=== PATIENT | male | born 1940 | race Caucasian/White ===

== ENCOUNTER 2018-10-04 05:40 | Day surgery (SDC) | payer MEDICARE, BC ==
[2018-10-04] MEDS ORDERED: Ketamine HCl 50 MG/ML IV ONE (05:41)
[2018-10-04] MEDS ORDERED: DIPRIVAN 200 MG/20 ML IV ONE (05:41)
[2018-10-04] MEDS ORDERED: Lactated Ringers 1,000 ML IV SCH (06:00)
[2018-10-04 09:31] VITALS: O2SAT 97
[2018-10-04 09:32] VITALS: BP 135/67; PULSE 59
--- NOTE | 2018-10-04 10:23 | OP ---
SURGERY DATE/TIME: 10/04/2018 08 PREOPERATIVE DIAGNOSIS: Change in bowel habits. POSTOPERATIVE DIAGNOSIS: Normal colon. PROCEDURE: Colonoscopy. SURGEON: David Man M.D. ANESTHESIA: MAC by Jose Daniel Thomson CRNA. ESTIMATED BLOOD LOSS: None. SPECIMENS: None. DESCRIPTION OF PROCEDURE: After informed written consent was obtained, the patient was taken to the endoscopy suite. He underwent monitored anesthesia and had digital rectal exam showed normal sphincter tone and no internal lesions. The scope was inserted into the rectum and sequentially the entire colonic mucosa was traversed. The level of cecum was reached and verified with direct visualization of ileocecal valve. Upon withdrawal no gross mucosal abnormalities were detected. Prior to withdrawal retroflexion showed no internal lesions. The scope was removed and the patient was transferred to the recovery room in good condition.
== END 2018-10-04 09:15 | disposition home or self-care (01) ==
LOC: SDC 05:40
PROVIDERS: ATTEND Family Medicine
DX: R19.4 Change in bowel habit (principal)
CPT/HCPCS: 99100; J2704

== ENCOUNTER 2019-10-24 11:35 | Inpatient (IN) | payer MEDICARE, BC ==
--- NOTE | 2019-10-24 12:12 | ERPHSYRPT ---
- History of Present Illness Time Seen by Provider: 10/24/19 11:55 Source: patient Exam Limitations: no limitations Patient Subjective Stated Complaint: Pt states "Yesterday I went [place] and [place] out a fence row that had poisen gaye, sumac, oak and then went home and ate dinner, I had horrible acid reflux and took my pills and drank milk and it never went away. I woke up this morning and I coughed up some thick red paste blood." Triage Nursing Assessment: Pt presented alert and oriented X 3, skin pwd Pt ambualtes with an upright steady gait, able to speak in clear full sentences pt in no apparent respiratory distress. Pt throat slightly red. Physician History: This is a 79-year-old gentleman has a history of coronary artery disease, gastroesophageal reflux disease, diabetes, hypertension, chronic kidney disease who presents with 1 day history of sudden onset of reflux symptoms of intermittent burning in the esophagus which has resolved, and coughed up blood a few times this morning. Patient denies chest pain and he denies shortness of breath. Patient states that he sees Dr. Miller for his heart issues and Dr. Kan for his kidney issues. Patient was doing a lot of landscaping in areas where there was poison gaye and sumac present. Timing/Duration: yesterday Cough Quality/Degree: mild, blood streaked sputum Possible Cause: no prior episodes Modifying Factors: Improves With: coughing Associated Symptoms: cough, No fever, No chest pain/soreness, No muscle aches, No shortness of breath Allergies/Adverse Reactions: No Known Drug Allergies Allergy (Verified 10/04/18 06:16) Home Medications: Amlodipine/Atorvastatin [Amlodipine-Atorvast 2.5-10 mg] 1 each PO DAILY [History] Glipizide 5 mg [Glucotrol 5 MG] 5 mg PO BID 09/27/18 [History] Lansoprazole [Prevacid] 30 mg PO DAILY 09/27/18 [History] Losartan Potassium 50 mg [Cozaar 50 MG] 50 mg PO BID 09/27/18 [History] Metformin HCl 500 mg [Glucophage 500 MG] 500 mg PO DAILY 09/27/18 [History ] Propranolol HCl [Inderal Xl] 80 mg PO DAILY 09/27/18 [History] Rosuvastatin Calcium [Crestor] 20 mg PO DAILY 09/27/18 [History] Tamsulosin HCl 0.4 mg [Flomax 0.4 MG] 0.4 mg PO DAILY 09/27/18 [History] Famotidine 20 mg [Pepcid 20 MG] 20 mg PO DAILY 10/24/19 [History] Hx Tetanus, Diphtheria Vaccination/Date Given: No Hx Influenza Vaccination/Date Given: No Hx Pneumococcal Vaccination/Date Given: No Immunizations Up to Date: Yes Travel Risk - International Travel Have you traveled outside of the country in past 3 weeks: No Have you or anyone close to you been diagnosed with or: No Do your reside in a community with a known COVID-19 case?: Yes If Yes where:: [place] - Coronavirus Screening Has patient experienced Coronavirus symptoms: No - Review of Systems Constitutional: No Symptoms Eyes: No Symptoms Ears, Nose, & Throat: No Symptoms Respiratory: Cough, No Dyspnea, No Stridor, No Wheezing Cardiac: No Symptoms Abdominal/Gastrointestinal: No Symptoms Genitourinary Symptoms: No Symptoms Musculoskeletal: No Symptoms Skin: No Symptoms Neurological: No Symptoms Psychological: No Symptoms Endocrine: No Symptoms Hematologic/Lymphatic: No Symptoms Immunological/Allergic: No Symptoms All Other Systems: Reviewed and Negative - Past Medical History Pertinent Past Medical History: Yes Neurological History: No Pertinent History ENT History: No Pertinent History Cardiac History: High Cholesterol, Hypertension, Other Respiratory History: No Pertinent History Endocrine Medical History: Diabetes Type II Musculoskeletal History: No Pertinent History GI Medical History: No Pertinent History, GERD History: Renal Disease, Other Psycho-Social History: No Pertinent History Male Reproductive Disorders: Prostate Problems - Past Surgical History Past Surgical History: Yes Neuro Surgical History: No Pertinent History Cardiac: CABG Respiratory: No Pertinent History Gastrointestinal: Cholecystectomy Genitourinary: No Pertinent History Musculoskeletal: No Pertinent History Male Surgical History: No Pertinent History Other Surgical History: 4 bypass open heart in 1999, caratid surgery/cleaning, - Social History Smoking Status: Former smoker Exposure to second hand smoke: No Drug Use: none Patient Lives Alone: No - Nursing Vital Signs Nursing Vital Signs: Initial Vital Signs Temperature 98.6 F 10/24/19 11:44 Pulse Rate 69 10/24/19 11:44 Respiratory Rate 22 10/24/19 11:44 Blood Pressure 140/71 10/24/19 11:44 O2 Sat by Pulse Oximetry 94 L 10/24/19 11:44 Pain Scale Pain Intensity 2 - Physical Exam General Appearance: no apparent distress, alert Eye Exam: PERRL/EOMI, eyes nml inspection Ears, Nose, Throat Exam: normal ENT inspection, moist mucous membranes Neck Exam: normal inspection, non-tender, supple, full range of motion Respiratory Exam: normal breath sounds, lungs clear, airway intact, No chest tenderness, No respiratory distress Cardiovascular Exam: regular rate/rhythm, normal heart sounds, normal peripheral pulses Gastrointestinal/Abdomen Exam: soft, normal bowel sounds, No tenderness, No guarding Back Exam: normal inspection, normal range of motion, No CVA tenderness, No vertebral tenderness Extremity Exam: normal inspection, normal range of motion, pelvis stable Neurologic Exam: alert, oriented x 3, cooperative, burr sander II-XII nml as tested Skin Exam: normal color, warm, dry Lymphatic Exam: No adenopathy SpO2 Interpretation: borderline oxygenation SpO2: 94 O2 Delivery: Room Air - Course Nursing assessment & vital signs reviewed: Yes EKG Interpreted by Me: RATE, Sinus Rhythm, Left [place] Deviation, NORMAL QRS, Other (Prolonged TX interval. Probable left atrial enlargement. No comparison EKG available) Ordered Tests: Active Orders 24 hr Category Date Time Status Marketing Intelligence Analyst STAT Care 10/24/19 12:17 Active EKG-ER Only STAT Care 10/24/19 12:15 Active IV Insertion STAT Care 10/24/19 12:15 Active Pulse Oximetry (ED) STAT Care 10/24/19 12:15 Active CHEST 1 VIEW (PORTABLE) Stat Exams 10/24/19 12:16 Completed CBC W DIFF Stat Lab 10/24/19 12:20 Completed CMP Stat Lab 10/24/19 12:20 Completed D-DIMER QUANTITATIVE Stat Lab 10/24/19 12:20 Completed Lactic Acid Stat Lab 10/24/19 12:20 Completed NT PRO BNP Stat Lab 10/24/19 12:20 Completed PROTIME WITH INR Stat Lab 10/24/19 12:20 Completed TROPONIN Q3H Lab 10/24/19 12:20 Completed TROPONIN Q3H Lab 10/24/19 15:30 Ordered TROPONIN Q3H Lab 10/24/19 18:30 Ordered TROPONIN Q3H Lab 10/24/19 21:30 Ordered TROPONIN Q3H Lab 10/25/19 00:30 Ordered Medication Summary Generic Name Dose Route Start Last Admin Trade Name Alejandrina PRN Reason Stop Dose Admin Azithromycin 500 mg in 250 mls @ 250 mls/hr 10/24/19 13:20 Zithromax 500 Mg/ 250 Ml Nacl Premix IV 10/24/19 14:19 STAT STA Discontinued Medications Generic Name Dose Route Start Last Admin Trade Name Alejandrina PRN Reason Stop Dose Admin Enoxaparin Sodium 100 mg 10/24/19 13:19 Enoxaparin Sodium SQ 10/24/19 13:20 STAT STA Enoxaparin Sodium Confirm 10/24/19 13:41 Enoxaparin Sodium Administered 10/24/19 13:42 Dose 120 mg SQ .STK-MED ONE Famotidine 20 mg 10/24/19 12:15 10/24/19 12:22 Pepcid 20 Mg Vial IV 10/24/19 12:16 20 mg STAT ONE Administration Famotidine Confirm 10/24/19 12:20 Pepcid 20 Mg Vial Administered 10/24/19 12:21 Dose 20 mg IV .STK-MED ONE Ceftriaxone Sodium/Dextrose 1 g in 50 mls @ 100 mls/hr 10/24/19 13:20 Rocephin 1 Gm-D5w 50 Ml Bag IV 10/24/19 13:49 STAT STA Azithromycin Confirm 10/24/19 13:41 Zithromax 500 Mg/ 250 Ml Nacl Premix Administered 10/24/19 13:42 Dose 500 mg in 250 mls @ ud IV .STK-MED ONE Ceftriaxone Sodium/Dextrose Confirm 10/24/19 13:41 Rocephin 1 Gm-D5w 50 Ml Bag Administered 10/24/19 13:42 Dose 1 g in 50 mls @ ud IV .STK-MED ONE Sodium Chloride Confirm 10/24/19 13:41 Sodium Chloride 0.9% 50 Ml Administered 10/24/19 13:42 Dose 50 mls @ ud IV .STK-MED ONE Methylprednisolone Sodium Succinate 125 mg 10/24/19 12:15 10/24/19 12:22 Solu-Medrol 125 Mg IV 10/24/19 12:16 125 mg STAT ONE Administration Methylprednisolone Sodium Succinate Confirm 10/24/19 12:20 Solu-Medrol 125 Mg Administered 10/24/19 12:21 Dose 125 mg .ROUTE .STK-MED ONE Lab/Rad Data: Laboratory Result Diagrams 10/24/19 12:20 10/24/19 12:20 Laboratory Results 10/24/19 10/24/19 10/24/19 Range/Units 12:20 12:20 12:20 WBC (4.0-10.5) K/mm3 RBC (4.1-5.6) M/mm3 Hgb (12.5-18.0) gm/dl Hct (42-50) % MCV (78-100) fl MCH (26-32) pg MCHC (32-36) g/dl RDW (11.5-14.0) % Plt Count (150-450) K/mm3 MPV (7.5-11.0) fl Gran % (36.0-66.0) % Eos # (Auto) (0-0.5) Absolute Lymphs (auto) (1.0-4.6) Absolute Monos (auto) (0.0-1.3) Lymphocytes % (24.0-44.0) % Monocytes % (0.0-12.0) % Eosinophils % (0.00-5.0) % Basophils % (0.0-0.4) % Absolute Granulocytes (1.4-6.9) Basophils # (0-0.4) PT 11.6 (8.83-12.87) SECONDS INR 1.03 (0.8-3.0) D-Dimer 1317 H* (215-500) ng/mL Sodium 139 (137-145) mmol/L Potassium 4.4 (3.5-5.1) mmol/L Chloride 104 (98-107) mmol/L Carbon Dioxide 26 (22-30) mmol/L Anion Gap 13.9 (5-15) MEQ/L BUN 45 H (9-20) mg/dL Creatinine 1.90 H (0.66-1.25) mg/dL Estimated GFR 36.6 ML/MIN Glucose 236 H (74-106) mg/dL Lactic Acid (0.4-2.0) Calcium 9.3 (8.4-10.2) mg/dL Total Bilirubin 1.70 H (0.2-1.3) mg/dL AST 27 (17-59) U/L ALT 24 (0-50) U/L Alkaline Phosphatase 70 (38-126) U/L Troponin I < 0.012 (0.000-0.034) ng/mL NT-Pro-B Natriuret Pep 345 (0-1800) pg/mL Serum Total Protein 7.3 (6.3-8.2) g/dL Albumin 4.2 (3.5-5.0) g/dL 10/24/19 10/24/19 Range/Units 12:20 12:20 WBC 17.9 H (4.0-10.5) K/mm3 RBC 4.68 (4.1-5.6) M/mm3 Hgb 13.8 (12.5-18.0) gm/dl Hct 42.4 (42-50) % MCV 90.6 (78-100) fl MCH 29.5 (26-32) pg MCHC 32.5 (32-36) g/dl RDW 14.5 H (11.5-14.0) % Plt Count 190 (150-450) K/mm3 MPV 12.0 H (7.5-11.0) fl Gran % 89.6 H (36.0-66.0) % Eos # (Auto) 0.01 (0-0.5) Absolute Lymphs (auto) 0.67 L (1.0-4.6) Absolute Monos (auto) 1.14 (0.0-1.3) Lymphocytes % 3.8 L (24.0-44.0) % Monocytes % 6.4 (0.0-12.0) % Eosinophils % 0.1 (0.00-5.0) % Basophils % 0.1 (0.0-0.4) % Absolute Granulocytes 16.02 H (1.4-6.9) Basophils # 0.01 (0-0.4) PT (8.83-12.87) SECONDS INR (0.8-3.0) D-Dimer (215-500) ng/mL Sodium (137-145) mmol/L Potassium (3.5-5.1) mmol/L Chloride (98-107) mmol/L Carbon Dioxide (22-30) mmol/L Anion Gap (5-15) MEQ/L BUN (9-20) mg/dL Creatinine (0.66-1.25) mg/dL Estimated GFR ML/MIN Glucose (74-106) mg/dL Lactic Acid 1.2 (0.4-2.0) Calcium (8.4-10.2) mg/dL Total Bilirubin (0.2-1.3) mg/dL AST (17-59) U/L ALT (0-50) U/L Alkaline Phosphatase (38-126) U/L Troponin I (0.000-0.034) ng/mL NT-Pro-B Natriuret Pep (0-1800) pg/mL Serum Total Protein (6.3-8.2) g/dL Albumin (3.5-5.0) g/dL - Progress Air Movement: good Progress Note: 10/24/19 13:43 Chest x-ray shows a left side space disease consistent with a pneumonia. Medical decision making: This patient has an elevated white blood cell count, chest x-ray consistent with pneumonia, as well as an elevated d-dimer. Patient has chronic kidney disease and a low GFR. Patient is unable to undergo a CAT scan of the chest with intravenous contrast. The plan will be to admit him into the hospital, give him intravenous antibiotics and Lovenox while waiting for the VQ scan to be performed tomorrow. 10/24/19 13:[address] Nielson. I reviewed the patient history, lab, EKG and x-ray results. Dr. Nielson agrees with the above plan. Blood Culture(s) Obtained: No Antibiotics given: No Discussed with : Irving Counseled pt/family regarding: lab results, diagnosis, need for follow-up, rad results - Departure Departure Disposition: In-patient Admission Clinical Impression: Pneumonia, Leukocytosis, Hemoptysis, D-dimer, elevated, Chronic renal disease Condition: Stable Critical Care Time: Yes Referrals: NICOLE JONES MD [Primary Care Provider] -
[2019-10-24] MEDS ORDERED: solu-MEDROL 125 MG IV ONE (12:15)
[2019-10-24] MEDS ORDERED: Pepcid 20 MG VIAL IV ONE ×2 (12:15→12:20)
[2019-10-24] MEDS ORDERED: solu-MEDROL 125 MG ONE (12:20)
[2019-10-24 12:34] LABS: Absolute Neutrophil Ct (ANC) 16.02 (1.4-6.9); BASOPHIL % 0.1 % (0.0-0.4); Basophil (Absolute #) 0.01 (0-0.4); Eosinophil % 0.1 % (0.00-5.0); Eosinophil (Absolute #) 0.01 (0-0.5); Hematocrit 42.4 % (42-50); Hemoglobin 13.8 gm/dl (12.5-18.0); Lymphocyte (Absolute #) 0.67 (1.0-4.6); Lymphocytes % 3.8 % (24.0-44.0); Mean Cell Volume 90.6 fl (78-100); Mean Corpuscular Hemoglobin 29.5 pg (26-32); Mean Corpuscular Hgb Concent. 32.5 g/dl (32-36); Monocyte (Absolute #) 1.14 (0.0-1.3); Monocytes % 6.4 % (0.0-12.0); Neutrophil % 89.6 % (36.0-66.0); Platelet Count 190 K/mm3 (150-450); Red Blood Count 4.68 M/mm3 (4.1-5.6); Red Cell Distribution Width 14.5 % (11.5-14.0); White Blood Count 17.9 K/mm3 (4.0-10.5)
[2019-10-24 12:40] LABS: INR 1.03 (0.8-3.0); PROTIME 11.6 SECONDS (8.83-12.87)
--- NOTE | 2019-10-24 12:42 | XRAY ---
Indication: Cough. Comparison: October 12, 2008. Portable chest demonstrates new diffuse left lung airspace disease without consolidation/large effusion. Remaining heart and right lung unremarkable with stable left base calcified granuloma. Bony thorax intact again with sternotomy wires.
[2019-10-24 12:53] LABS: ALBUMIN 4.2 g/dL (3.5-5.0); ANION GAP 13.9 MEQ/L (5-15); BILIRUBIN,TOTAL 1.7 mg/dL (0.2-1.3); Calcium 9.3 mg/dL (8.4-10.2); Creatinine 1 1.9 mg/dL (0.66-1.25); Potassium 4.4 mmol/L (3.5-5.1); Total Protein 7.3 g/dL (6.3-8.2)
[2019-10-24] MEDS ORDERED: ENOXAPARIN SODIUM SQ STA (13:19)
[2019-10-24] MEDS ORDERED: ROCEPHIN 1 Gm-D5w 50 ml Bag** 1 G/50 ML IVPB IV STA (13:20)
[2019-10-24] MEDS ORDERED: Zithromax 500 MG/ 250 ML NaCl Premix 500 MG/250 ML IVPB IV STA (13:20)
[2019-10-24] MEDS ORDERED: Zithromax 500 MG/ 250 ML NaCl Premix 500 MG/250 ML IVPB IV ONE (13:41)
[2019-10-24] MEDS ORDERED: ENOXAPARIN SODIUM SQ ONE (13:41)
[2019-10-24] MEDS ORDERED: ROCEPHIN 1 Gm-D5w 50 ml Bag** 1 G/50 ML IVPB IV ONE (13:41)
[2019-10-24] MEDS ORDERED: TYLENOL 325 MG PO PRN (15:13)
[2019-10-24] MEDS ORDERED: Sodium Chloride 0.9% 1000 ML 1,000 ML ONE (15:19)
[2019-10-24] MEDS: ENOXAPARIN SODIUM SQ SCH (15:24)
[2019-10-24] MEDS: Sodium Chloride 0.9% 1000 ML 1,000 ML IV SCH (16:56)
[2019-10-24] MEDS ORDERED: Glucotrol 5 MG PO SCH (17:30)
[2019-10-24] MEDS ORDERED: MEDICATION INTERVENTION PO SCH (17:30)
[2019-10-24] MEDS ORDERED: Protonix 40MG Tablet PO SCH ×2 (18:00→22:00)
[2019-10-24] MEDS: Cozaar 50 MG PO SCH (20:40)
[2019-10-24] MEDS: VITAMIN D PO SCH (20:40)
[2019-10-24] MEDS: Zocor 10MG PO SCH (21:29)
[2019-10-24] MEDS ORDERED: NON-FORMULARY ITEM (Triamterene/Hydrochlorothiazid [Triamterene-Hctz 75-50 Mg Tab] 1 EACH) PO SCH (22:00)
[2019-10-24] MEDS ORDERED: [UNRECOGNIZED DRUG - OTHER] PO SCH (22:00)
[2019-10-24] MEDS ORDERED: Maxzide-25MG Tablet PO SCH ×3 (22:00)
[2019-10-24] MEDS: Glucotrol 5 MG PO SCH (22:46)
[2019-10-24] MEDS: HUMALOG SQ PRN (23:12)
[2019-10-25] MEDS: ENOXAPARIN SODIUM SQ SCH (03:27)
[2019-10-25 05:20] LABS: Absolute Neutrophil Ct (ANC) 12.77 (1.4-6.9); BASOPHIL % 0.1 % (0.0-0.4); Basophil (Absolute #) 0.01 (0-0.4); Eosinophil (Absolute #) 0 (0-0.5); Hematocrit 38.9 % (42-50); Hemoglobin 12.6 gm/dl (12.5-18.0); Lymphocyte (Absolute #) 0.53 (1.0-4.6); Lymphocytes % 3.8 % (24.0-44.0); Mean Cell Volume 89.6 fl (78-100); Mean Corpuscular Hgb Concent. 32.4 g/dl (32-36); Mean Platelet Volume 12.1 fl (7.5-11.0); Monocyte (Absolute #) 0.52 (0.0-1.3); Monocytes % 3.8 % (0.0-12.0); Neutrophil % 92.3 % (36.0-66.0); Platelet Count 181 K/mm3 (150-450); Red Blood Count 4.34 M/mm3 (4.1-5.6); Red Cell Distribution Width 14.4 % (11.5-14.0); White Blood Count 13.8 K/mm3 (4.0-10.5)
[2019-10-25 05:46] LABS: ANION GAP 13.3 MEQ/L (5-15); Calcium 8.9 mg/dL (8.4-10.2); Creatinine 1 1.58 mg/dL (0.66-1.25); Potassium 4.2 mmol/L (3.5-5.1)
[2019-10-25 08:01] LABS: INR 1.16 (0.8-3.0); PROTIME 13.2 SECONDS (8.83-12.87)
[2019-10-25 08:03] LABS: PTT 39.8 SECONDS (24.1-36.1)
[2019-10-25] MEDS: Glucophage 500 MG PO SCH (08:03)
--- NOTE | 2019-10-25 08:23 | HP ---
CHIEF COMPLAINT: Coughing up blood. HISTORY OF PRESENT ILLNESS: The patient is a 79 year-old white male who reports that the day prior to admission he had terrible reflux and abdominal pain. He reports he had some diarrhea. He reports that at one point he could not even make it to the bathroom and had diarrhea in his pants. The patient reports that he coughed up but actually sounds more like had reflux and vomited a blood clot. The patient reports he has been on Prevacid for a number of years that he had tried Protonix and Zantac previously without any help. The patient reports the Prevacid helped up to this point in time but now appears that it is no longer helpful. PAST MEDICAL/SURGICAL HISTORY: Significant for renal issues that he sees Dr. Kan for and cardiac issues for which he sees Dr. Miller. The patient has diabetes mellitus type 2 and prostate problems. He had open heart surgery in 1999 and carotid endarterectomy. MEDICATIONS: His list of home medications amlodipine/atorvastatin 2.5/10 daily, famotidine 20 mg PRN, glipizide 5 mg b.i.d., Prevacid 30 mg, losartan 50 mg b.i.d., Metformin 500 mg b.i.d., vitamin D, propranolol XL 80 mg a day, Crestor 20 mg a day, Tamsulosin 0.4 mg a day, Maxzide 50 mg daily. ALLERGIES: NKDA. PHYSICAL EXAMINATION: The patient's vital signs on admission showed his temperature to be 98.6F, pulse 69, respiratory rate 22 and blood pressure 140/71. O2 saturation was 94%. HEENT: Normocephalic, atraumatic. Pupils equal round reactive to light. Extraocular movements intact. Oropharynx is pink and moist. NECK: Supple without lymphadenopathy, thyromegaly or JVD. CHEST: Clear to auscultation. HEART: Regular rate and rhythm. ABDOMEN: Soft with no palpable masses. EXTREMITIES: Without cyanosis, clubbing or significant edema. NEUROLOGIC: The patient is alert and oriented x3. LAB DATA AND TESTS: Laboratory studies showed a troponin less than 0.012. Lactic 1.2. White count 17,900, hemoglobin 13.8, PLT 190,000. His glucose is 236, BUN 45, creatinine 1.9. Electrolytes were normal. Total bilirubin slightly elevated at 1.7. D-dimer was elevated at 1,317. ASSESSMENT: A patient with what sounds to be a GI bleed. He has been admitted to the hospital for IV fluid hydration. We will place him on IV Protonix. The patient did have an elevated D-dimer for which we are checking VQ scan since he could not have CT angiography of the lungs due to his elevated creatinine. We will monitor the patient closely. We discussed with him performing an EGD tomorrow morning for evaluation for the source of the blood loss. We will in the meantime check heme-testing of his stool.
--- NOTE | 2019-10-25 08:45 | XRAY ---
Indication: Chest pain, short of breath, and hemoptysis. Patient received 5 mCi technetium 99 MAA for the perfusion portion of the exam. Patient inhaled 35 mCi aerosolized technetium 99 DTPA for the ventilation portion of the exam. Multiple planar images obtained. Comparison: None Perfusion images demonstrates good radiopharmaceutical activity bilaterally without focal segmental/subsegmental perfusion defect. Ventilation images demonstrates subtle diminished patchy radiopharmaceutical activity throughout the left lung. Right lung demonstrates normal homogeneous radiopharmaceutical activity. Impression: 1. No perfusion defects. 2. Ventilation images demonstrate subtle diminished left lung radiopharmaceutical activity. Finding consistent with left lung airspace disease as seen on chest radiograph one day earlier.
[2019-10-25] MEDS: Glucotrol 5 MG PO SCH ×2 (09:10→20:56)
[2019-10-25] MEDS: Cozaar 50 MG PO SCH ×2 (09:10→20:56)
[2019-10-25] MEDS: NORVASC 5 MG PO SCH (09:10)
[2019-10-25] MEDS: PROTONIX 40 MG IV IV SCH (09:10)
[2019-10-25] MEDS: ROCEPHIN 1 Gm-D5w 50 ml Bag** 1 G/50 ML IVPB IV SCH (09:10)
[2019-10-25] MEDS: Flomax 0.4 MG PO SCH (09:10)
[2019-10-25 09:40] LABS: Slide Review 1 YES
[2019-10-25] MEDS ORDERED: PROPRANOLOL HCL 80 MG PO SCH (10:00)
[2019-10-25] MEDS ORDERED: NON-FORMULARY ITEM (Rosuvastatin Calcium [Crestor] 20 MG) PO SCH (10:00)
[2019-10-25] MEDS ORDERED: AMLODIPINE PO SCH (10:00)
[2019-10-25] MEDS ORDERED: Zocor 10MG PO SCH (10:00)
[2019-10-25] MEDS ORDERED: NON-FORMULARY ITEM (Lansoprazole [Prevacid] 30 MG) PO SCH (10:00)
[2019-10-25] MEDS ORDERED: ATORVASTATIN PO SCH (10:00)
[2019-10-25] MEDS: Zithromax 500 MG/ 250 ML NaCl Premix 500 MG/250 ML IVPB IV SCH (10:13)
[2019-10-25] MEDS: HUMALOG SQ PRN (12:10)
[2019-10-25] MEDS: Sodium Chloride 0.9% 1000 ML 1,000 ML IV SCH (13:52)
[2019-10-25] MEDS: VITAMIN D PO SCH (20:56)
[2019-10-25] MEDS: Zocor 10MG PO SCH (20:57)
[2019-10-25] MEDS ORDERED: Maxzide-25MG Tablet PO SCH (22:00)
[2019-10-26] MEDS ORDERED: Lactated Ringers 1,000 ML IV ONE (01:29)
[2019-10-26 05:00] LABS: Absolute Neutrophil Ct (ANC) 9.65 (1.4-6.9); BASOPHIL % 0.2 % (0.0-0.4); Basophil (Absolute #) 0.02 (0-0.4); Eosinophil % 0.3 % (0.00-5.0); Eosinophil (Absolute #) 0.03 (0-0.5); Hematocrit 39.7 % (42-50); Hemoglobin 12.9 gm/dl (12.5-18.0); Lymphocyte (Absolute #) 1.16 (1.0-4.6); Lymphocytes % 9.8 % (24.0-44.0); Mean Cell Volume 90.2 fl (78-100); Mean Corpuscular Hemoglobin 29.3 pg (26-32); Mean Corpuscular Hgb Concent. 32.5 g/dl (32-36); Mean Platelet Volume 11.7 fl (7.5-11.0); Monocyte (Absolute #) 1.01 (0.0-1.3); Monocytes % 8.5 % (0.0-12.0); Neutrophil % 81.2 % (36.0-66.0); Platelet Count 171 K/mm3 (150-450); Red Cell Distribution Width 14.7 % (11.5-14.0); White Blood Count 11.9 K/mm3 (4.0-10.5)
[2019-10-26] MEDS ORDERED: Lactated Ringers 1,000 ML IV SCH (05:00)
[2019-10-26 05:11] LABS: ALBUMIN 3.6 g/dL (3.5-5.0); BILIRUBIN,TOTAL 0.7 mg/dL (0.2-1.3); Calcium 8.9 mg/dL (8.4-10.2); Creatinine 1 1.66 mg/dL (0.66-1.25); Potassium 3.9 mmol/L (3.5-5.1); Total Protein 6.3 g/dL (6.3-8.2)
[2019-10-26 06:27] VITALS: BP 152/75
[2019-10-26] MEDS: Flomax 0.4 MG PO SCH (09:18)
[2019-10-26] MEDS: PROTONIX 40 MG IV IV SCH (09:18)
[2019-10-26] MEDS: NORVASC 5 MG PO SCH (09:18)
[2019-10-26] MEDS: ROCEPHIN 1 Gm-D5w 50 ml Bag** 1 G/50 ML IVPB IV SCH (09:18)
[2019-10-26] MEDS: Zithromax 500 MG/ 250 ML NaCl Premix 500 MG/250 ML IVPB IV SCH (09:18)
[2019-10-26] MEDS: Glucotrol 5 MG PO SCH (09:19)
[2019-10-26] MEDS: Glucophage 500 MG PO SCH (09:19)
[2019-10-26] MEDS: Cozaar 50 MG PO SCH (09:19)
--- NOTE | 2019-10-26 09:20 | OP ---
SURGERY DATE/TIME: 10/26/2019815 PREOPERATIVE DIAGNOSIS: GI bleed. POSTOPERATIVE DIAGNOSIS: Moderate to severe gastropathy and hiatal hernia. PROCEDURE: Esophagogastroduodenoscopy with cold forceps biopsy. SURGEON: Dr. Nielson. ANESTHESIA: Medications were given by the anesthesia department. HISTORY: The patient is a 79 year old white male who presented to the hospital emergency room having initially reporting coughing up blood but he reports that he has been having severe reflux recently and as the story developed it sounded more like he was actually bringing it up from the stomach. The patient was felt the need to have endoscopic evaluation. He was appraised of the risks of the procedure including the risk of perforation, phlebitis, untoward reaction to medication, bleeding and missed lesions. The patient verbalized his understanding and desired to have the procedure performed. DESCRIPTION OF PROCEDURE: The patient was given the medications by the anesthesia department. He had continuous pulse oximetry, ECG monitoring, intermittent blood pressure monitoring and tidal CO2 monitoring during the examination. He was placed in the left lateral decubitus position. A bite block was placed and the flexible Olympus gastroscope was used to intubate the oropharynx. The esophagus was obtained and was normal. The scope was easily introduced in the esophagus which was normal throughout its length to the esophagogastric junction where there appeared to be a hiatal hernia. The stomach was then inspected and found to have normal gastric rugal folds that distended nicely with insufflation of air. The scope was passed along to the gastric antrum. There appeared to be moderate amounts of erythema and punctate bleeding noted throughout this area but no erosions or ulcerations were noted. The pylorus was encountered and duodenum inspected and found to be normal. The scope is withdrawn to the stomach. A retroflex view was obtained of the lesser curvature, fundus and cardia regions of the stomach and there appeared to be a hiatal hernia otherwise no significant pathology was noted. The scope was then redirected towards the gastric antrum where biopsies were obtained to rule out the presence of Helicobacter pylori-type organisms. The scope was then removed from the patient who tolerated the procedure well and was sent back to the hospital [facility] in good condition.
[2019-10-26 12:01] VITALS: PULSE 72; O2SAT 94
== END 2019-10-26 12:18 | disposition home or self-care (01) | DRG 392 ==
LOC: ED 11:35 → MED SURG 15:11
PROVIDERS: ADMIT Family Medicine; ATTEND Family Medicine
PROC: 0DD78ZX Extraction of Stomach, Pylorus, Via Natural or Artificial Opening Endoscopic, Diagnostic (ICD-10-PCS; principal; 2019-10-26)
DX: R04.2 Hemoptysis (principal); K31.9 Disease of stomach and duodenum, unspecified; K44.9 Diaphragmatic hernia without obstruction or gangrene; E11.9 Type 2 diabetes mellitus without complications; I10 Essential (primary) hypertension; E78.00 Pure hypercholesterolemia, unspecified; N28.9 Disorder of kidney and ureter, unspecified; R19.7 Diarrhea, unspecified; I25.10 Atherosclerotic heart disease of native coronary artery without angina pectoris; R79.1 Abnormal coagulation profile; Z95.1 Presence of aortocoronary bypass graft; Z79.899 Other long term (current) drug therapy
CPT/HCPCS: 36000; 36415; 43239; 71045; 78582; 80048; 80053; 82962; 83605; 83880; 84484; 85025; 85379; 85610; 85730; 93005; 93041; 94760; 94762; 96365; 96367; 96372; 96374; 96375; 99284; A9540; A9567; U0003; 88305; 99100; J0456; J0696; J1650; J1817; J2930; A9270-GY

== ENCOUNTER 2022-01-20 21:41 | Emergency (ER) | payer MEDICARE, BC ==
[2022-01-20 21:47] VITALS: O2SAT 95
--- NOTE | 2022-01-20 21:49 | ERPHSYRPT ---
- History of Present Illness Time Seen by Provider: 01/20/22 21:49 Historian: patient, family Exam Limitations: no limitations Physician History: This is an 81-year-old white male patient of Dr. Jones who has coronary artery disease and has a ventricular pacemaker in place and presents with a several day history of intermittent cough and mild shortness of breath and chest pain associated with the cough. Few days ago he noticed that the mucus that he was coughing up was brown. Today the sputum is clear. Although the patient has all of the above symptoms, he feels it is more likely pneumonia than a cardiac issue. Patient has a history of hypertension, hyperlipidemia, [id number] diabetes, gastroesophageal reflux disease. He has not had a fever. The chest pain is generalized and associated with cough. It is anterior and nonradiating. Timing/Duration: day(s) (Several), intermittent, other (Symptoms are persistent) Quality: aching (With coughing) Location: other (Generalized anterior chest) Severity of Pain-Max: mild (Only with coughing) Severity of Pain-Current: mild (Only with coughing) Nitro Today/Relief: no nitro taken today Aspirin Treatment Today: no aspirin today Allergies/Adverse Reactions: prednisone Adverse Reaction (Verified 01/20/22 21:56) Home Medications: Amlodipine/Atorvastatin [Amlodipine-Atorvast 2.5-10 mg] 1 each PO DAILY 09/27/18 [History] Glipizide 5 mg [Glucotrol 5 MG] 5 mg PO BID 09/27/18 [History] Lansoprazole [Prevacid] 30 mg PO DAILY 09/27/18 [History] Losartan Potassium 50 mg [Cozaar 50 MG] 50 mg PO BID 09/27/18 [History] Metformin HCl 500 mg [Glucophage 500 MG] 500 mg PO DAILY 09/27/18 [History] Propranolol HCl [Inderal Xl] 80 mg PO DAILY 09/27/18 [History] Rosuvastatin Calcium [Crestor] 20 mg PO DAILY 09/27/18 [History] Tamsulosin HCl 0.4 mg [Flomax 0.4 MG] 0.4 mg PO DAILY 09/27/18 [History] Hx Tetanus, Diphtheria Vaccination/Date Given: No Hx Influenza Vaccination/Date Given: No Hx Pneumococcal Vaccination/Date Given: No Travel Risk - International Travel Have you traveled outside of the country in past 3 weeks: No - Coronavirus Screening Are you exhibiting any of the following symptoms?: Yes Symptoms: Cough: New Onset, Shortness of Breath Close contact with a COVID-19 positive Pt in past 14-21 Days: No - Review of Systems Constitutional: No Symptoms Eyes: No Symptoms Ears, Nose, & Throat: No Symptoms Respiratory: Cough, Dyspnea (Mild with cough) Cardiac: Chest Pain (Mild with coughing) Abdominal/Gastrointestinal: No Symptoms Genitourinary Symptoms: No Symptoms Musculoskeletal: No Symptoms Skin: No Symptoms Neurological: No Symptoms Psychological: No Symptoms Endocrine: No Symptoms Hematologic/Lymphatic: No Symptoms Immunological/Allergic: No Symptoms All Other Systems: Reviewed and Negative - Past Medical History Pertinent Past Medical History: Yes Neurological History: No Pertinent History ENT History: No Pertinent History Cardiac History: High Cholesterol, Hypertension, Other Respiratory History: No Pertinent History Endocrine Medical History: Diabetes Type II Musculoskeletal History: No Pertinent History GI Medical History: GERD History: Renal Disease, Other Psycho-Social History: No Pertinent History Male Reproductive Disorders: Prostate Problems - Past Surgical History Past Surgical History: Yes Neuro Surgical History: No Pertinent History Cardiac: CABG Respiratory: No Pertinent History Gastrointestinal: Cholecystectomy Genitourinary: No Pertinent History Musculoskeletal: No Pertinent History Male Surgical History: No Pertinent History Other Surgical History: 4 bypass open heart in 1999, CAROTID surgery/cleaning, - Social History Smoking Status: Former smoker Exposure to second hand smoke: No Drug Use: none Patient Lives Alone: No - Nursing Vital Signs Nursing Vital Signs: Initial Vital Signs Temperature 98.5 F 01/20/22 21:42 Pulse Rate 68 01/20/22 21:42 Respiratory Rate 22 01/20/22 21:42 Blood Pressure 167/88 01/20/22 21:42 O2 Sat by Pulse Oximetry 95 01/20/22 21:42 Pain Scale Pain Intensity 3 - Physical Exam General Appearance: no apparent distress, alert Eye Exam: PERRL/EOMI, eyes nml inspection Ears, Nose, Throat Exam: normal ENT inspection, moist mucous membranes Neck Exam: normal inspection, non-tender, supple, full range of motion Respiratory Exam: normal breath sounds, lungs clear, airway intact, No chest tenderness, No respiratory distress Cardiovascular Exam: regular rate/rhythm, normal heart sounds, normal peripheral pulses Gastrointestinal/Abdomen Exam: soft, normal bowel sounds, No tenderness Rectal Exam: not done Back Exam: normal inspection, normal range of motion, No CVA tenderness, No vertebral tenderness Extremity Exam: normal inspection, normal range of motion, pelvis stable Neurologic Exam: alert, oriented x 3, cooperative, personal fitness manager II-XII nml as tested, normal mood/affect, nml cerebellar function, nml station & gait, sensation nml Skin Exam: normal color, warm, dry Lymphatic Exam: No adenopathy SpO2 Interpretation: normal SpO2: 95 O2 Delivery: Room Air - Course Nursing assessment & vital signs reviewed: Yes EKG Interpreted by Me: RATE (71), NORMAL ST-T, Other (Ventricular paced rhythm. No evidence of acute ischemic changes.) Ordered Tests: Active Orders 24 hr Category Date Time Status Tin Assorter STAT Care 01/20/22 21:52 Active EKG-ER Only STAT Care 01/20/22 21:51 Active IV Insertion STAT Care 01/20/22 21:51 Active Pulse Oximetry (ED) STAT Care 01/20/22 21:51 Active CHEST 1 VIEW (PORTABLE) Stat Exams 01/20/22 21:52 Taken CBC W DIFF Stat Lab 01/20/22 22:00 Completed CMP Stat Lab 01/20/22 22:00 Completed D-DIMER QUANTITATIVE Stat Lab 01/20/22 22:00 Completed NT PRO BNP Stat Lab 01/20/22 22:00 Completed PROTIME WITH INR Stat Lab 01/20/22 22:00 Completed TROPONIN Q4H Lab 01/20/22 22:00 Completed TROPONIN Q4H Lab 01/21/22 02:00 Ordered TROPONIN Q4H Lab 01/21/22 06:00 Ordered Medication Summary Generic Name Dose Route Start Last Admin Trade Name Freq PRN Reason Stop Dose Admin Ceftriaxone Sodium/Dextrose 1 g in 50 mls @ 100 mls/hr 01/20/22 22:56 01/20/22 23:02 Rocephin 1 Gm-D5w 50 Ml Bag IV 01/20/22 23:25 100 mls/hr STAT STA 100 mls/hr Administration Azithromycin 500 mg in 250 mls @ 250 mls/hr 01/20/22 23:08 Zithromax 500 Mg/ 250 Ml Nacl Premix IV 01/21/22 00:07 STAT STA Heparin Sodium/Dextrose 25,000 units in 250 mls @ 10 mls/hr 01/20/22 23:30 Heparin 25,000 Units/D5w 250ml Premix IV 02/19/22 23:29 .Q24H NANDINI Discontinued Medications Generic Name Dose Route Start Last Admin Trade Name Alejandrina PRN Reason Stop Dose Admin Aspirin 324 mg 01/20/22 21:51 01/20/22 22:13 Aspirin 81 Mg Tab.Chew PO 01/20/22 21:52 324 mg STAT ONE Administration Heparin Sodium (Beef Lung) 5,000 unit 01/20/22 23:09 Heparin 5000 Unit/0.5 Ml Syringe IV 01/20/22 23:10 STAT ONE Ceftriaxone Sodium/Dextrose Confirm 01/20/22 23:01 Rocephin 1 Gm-D5w 50 Ml Bag Administered 01/20/22 23:02 Dose 1 g in 50 mls @ ud IV .STK-MED ONE Nitroglycerin 1 gm 01/20/22 22:59 01/20/22 23:03 Nitroglycerin 1 Gm Packet TOP 01/20/22 23:00 1 gm STAT ONE Administration Nitroglycerin Confirm 01/20/22 23:01 Nitroglycerin 1 Gm Packet Administered 01/20/22 23:02 Dose 1 gm .ROUTE .STK-MED ONE Lab/Rad Data: Laboratory Result Diagrams 01/20/22 22:00 01/20/22 22:00 Laboratory Results 01/20/22 01/20/22 01/20/22 Range/Units 22:00 22:00 22:00 WBC (4.0-10.5) x10^3/uL RBC (4.1-5.6) x10^6/uL Hgb (12.5-18.0) g/dL Hct (42-50) % MCV (78-100) fL MCH (26-32) pg MCHC (32-36) g/dL RDW (11.5-14.0) % Plt Count (150-450) x10^3/uL MPV (7.5-11.0) fL Gran % (36.0-66.0) % Immature Gran % (Auto) (0.00-0.4) % Nucleat RBC Rel Count (0.00-0.1) % Eos # (Auto) (0-0.5) x10^3/uL Immature Gran # (Auto) (0.00-0.03) x10^3u/L Absolute Lymphs (auto) (1.0-4.6) x10^3/uL Absolute Monos (auto) (0.0-1.3) x10^3/uL Absolute Nucleated RBC (0.00-0.01) x10^3u/L Lymphocytes % (24.0-44.0) % Monocytes % (0.0-12.0) % Eosinophils % (0.00-5.0) % Basophils % (0.0-0.4) % Absolute Granulocytes (1.4-6.9) x10^3/uL Basophils # (0-0.4) x10^3/uL PT 10.3 (9.4-12.5) SECONDS INR 0.97 (0.8-3.0) D-Dimer 0.55 H (0.0-0.50) mg/L Sodium (137-145) mmol/L Potassium (3.5-5.1) mmol/L Chloride (98-107) mmol/L Carbon Dioxide (22-30) mmol/L Anion Gap (5-15) MEQ/L BUN (9-20) mg/dL Creatinine (0.66-1.25) mg/dL Estimated GFR ML/MIN Glucose (74-106) mg/dL Calcium (8.4-10.2) mg/dL Total Bilirubin (0.2-1.3) mg/dL AST (17-59) U/L ALT (0-50) U/L Alkaline Phosphatase (38-126) U/L Troponin I 1.020 H* (0.000-0.034) ng/mL NT-Pro-B Natriuret Pep (0-1800) pg/mL Serum Total Protein (6.3-8.2) g/dL Albumin (3.5-5.0) g/dL Influenza Type A Ag NEGATIVE (NEGATIVE) Influenza Type B Ag NEGATIVE (NEGATIVE) RSV (PCR) NEGATIVE (Negative) SARS-CoV-2 (PCR) NEGATIVE (NEGATIVE) 01/20/22 01/20/22 Range/Units 22:00 22:00 WBC 8.8 (4.0-10.5) x10^3/uL RBC 4.53 (4.1-5.6) x10^6/uL Hgb 13.1 (12.5-18.0) g/dL Hct 39.7 L (42-50) % MCV 87.6 (78-100) fL MCH 28.9 (26-32) pg MCHC 33.0 (32-36) g/dL RDW 13.2 (11.5-14.0) % Plt Count 222 (150-450) x10^3/uL MPV 10.1 (7.5-11.0) fL Gran % 75.0 H (36.0-66.0) % Immature Gran % (Auto) 0.3 (0.00-0.4) % Nucleat RBC Rel Count 0.0 (0.00-0.1) % Eos # (Auto) 0.15 (0-0.5) x10^3/uL Immature Gran # (Auto) 0.03 (0.00-0.03) x10^3u/L Absolute Lymphs (auto) 1.04 (1.0-4.6) x10^3/uL Absolute Monos (auto) 0.93 (0.0-1.3) x10^3/uL Absolute Nucleated RBC 0.00 (0.00-0.01) x10^3u/L Lymphocytes % 11.8 L (24.0-44.0) % Monocytes % 10.6 (0.0-12.0) % Eosinophils % 1.7 (0.00-5.0) % Basophils % 0.6 (0.0-0.4) % Absolute Granulocytes 6.61 (1.4-6.9) x10^3/uL Basophils # 0.05 (0-0.4) x10^3/uL PT (9.4-12.5) SECONDS INR (0.8-3.0) D-Dimer (0.0-0.50) mg/L Sodium 130 L (137-145) mmol/L Potassium 3.6 (3.5-5.1) mmol/L Chloride 90 L (98-107) mmol/L Carbon Dioxide 30 (22-30) mmol/L Anion Gap 13.2 (5-15) MEQ/L BUN 31 H (9-20) mg/dL Creatinine 1.78 H (0.66-1.25) mg/dL Estimated GFR 39.3 ML/MIN Glucose 125 H (74-106) mg/dL Calcium 9.9 (8.4-10.2) mg/dL Total Bilirubin 0.80 (0.2-1.3) mg/dL AST 34 (17-59) U/L ALT 20 (0-50) U/L Alkaline Phosphatase 74 (38-126) U/L Troponin I (0.000-0.034) ng/mL NT-Pro-B Natriuret Pep 1100 (0-1800) pg/mL Serum Total Protein 6.9 (6.3-8.2) g/dL Albumin 4.3 (3.5-5.0) g/dL Influenza Type A Ag (NEGATIVE) Influenza Type B Ag (NEGATIVE) RSV (PCR) (Negative) SARS-CoV-2 (PCR) (NEGATIVE) - Progress Progress: improved, re-examined Air Movement: good Progress Note: 01/20/22 22:14 Chest x-ray shows cardiomegaly. Right basilar atelectasis versus infiltrate versus scarring. 01/20/22 23:13 Medical decision making: This patient has a non-STEMI as well as possible right lower lung pneumonia. Patient has an elevated troponin level of 1.02 and has significant cardiac history. His finance director is Dr. Miller, who works out of [facility] in [facility]. I spoke with Dr. Nation the emergency room physician at [facility] in [facility]. I reviewed the patient history, presenting complaint, physical findings, EKG results, chest x-ray results and laboratory results with him. He accepts the patient in transfer. Patient will receive nitroglycerin paste, 4 baby aspirin, Rocephin intravenously, azithromycin intravenously as well as a heparin bolus and heparin drip. Counseled pt/family regarding: lab results, diagnosis, need for follow-up, rad results - Departure Departure Disposition: Transfer Clinical Impression: NSTEMI (non-ST elevated myocardial infarction), Pneumonia Condition: Stable Critical Care Time: Yes Critical Care Time(excluding separately billable procedures): Critical 30-74 mins (30 minutes) Referrals: NICOLE JONES MD [Primary Care Provider] - Follow up/PCP as directed
[2022-01-20] MEDS ORDERED: BABY ASPIRIN 81 MG CHEW PO ONE (21:51)
[2022-01-20 22:10] LABS: Absolute Neutrophil Ct (ANC) 6.61 x10^3/uL (1.4-6.9); Basophil (Absolute #) 0.05 x10^3/uL (0-0.4); Eosinophil % 1.7 % (0.00-5.0); Eosinophil (Absolute #) 0.15 x10^3/uL (0-0.5); Hematocrit 39.7 % (42-50); Hemoglobin 13.1 g/dL (12.5-18.0); Lymphocyte (Absolute #) 1.04 x10^3/uL (1.0-4.6); Lymphocytes % 11.8 % (24.0-44.0); Mean Cell Volume 87.6 fL (78-100); Mean Corpuscular Hemoglobin 28.9 pg (26-32); Mean Platelet Volume 10.1 fL (7.5-11.0); Monocyte (Absolute #) 0.93 x10^3/uL (0.0-1.3); Monocytes % 10.6 % (0.0-12.0); Platelet Count 222 x10^3/uL (150-450); Red Blood Count 4.53 x10^6/uL (4.1-5.6); Red Cell Distribution Width 13.2 % (11.5-14.0); White Blood Count 8.8 x10^3/uL (4.0-10.5)
[2022-01-20 22:31] LABS: D-DIMER QUANTITATIVE 0.55 mg/L (0.0-0.50); INR 0.97 (0.8-3.0); PROTIME 10.3 SECONDS (9.4-12.5)
[2022-01-20 22:32] LABS: ALBUMIN 4.3 g/dL (3.5-5.0); ANION GAP 13.2 MEQ/L (5-15); BILIRUBIN,TOTAL 0.8 mg/dL (0.2-1.3); Calcium 9.9 mg/dL (8.4-10.2); Creatinine 1 1.78 mg/dL (0.66-1.25); EST GLOMERULAR FILTRATION RATE 39.3 ML/MIN; Potassium 3.6 mmol/L (3.5-5.1); Total Protein 6.9 g/dL (6.3-8.2)
[2022-01-20 22:47] LABS: INFLUENZA A NEGATIVE (NEGATIVE); INFLUENZA B NEGATIVE (NEGATIVE); RESPIRATORY SYNCTIAL VIRUS NEGATIVE (Negative); SARS-CoV-2 Xpert Express NEGATIVE (NEGATIVE)
[2022-01-20] MEDS ORDERED: ROCEPHIN 1 Gm-D5w 50 ml Bag** 1 G/50 ML IVPB IV STA (22:56)
[2022-01-20] MEDS ORDERED: NITRO-BID 2% UD PACKETS TOP ONE (22:59)
[2022-01-20] MEDS ORDERED: NITRO-BID 2% UD PACKETS ONE (23:01)
[2022-01-20] MEDS ORDERED: ROCEPHIN 1 Gm-D5w 50 ml Bag** 1 G/50 ML IVPB IV ONE (23:01)
[2022-01-20] MEDS ORDERED: Zithromax 500 MG/ 250 ML NaCl Premix 500 MG/250 ML IVPB IV STA (23:08)
[2022-01-20] MEDS ORDERED: Heparin 5000 UNITS/0.5 ML (HIGH RISK MED) IV ONE (23:09)
[2022-01-20] MEDS ORDERED: Heparin 5000 UNITS/0.5 ML (HIGH RISK MED) ONE (23:11)
[2022-01-20] MEDS ORDERED: Heparin 25,000 units/D5W 250ML PREMIX 25,000 UNITS/250 ML BAG IV ONE (23:12)
[2022-01-20] MEDS ORDERED: Heparin 25,000 units/D5W 250ML PREMIX 25,000 UNITS/250 ML BAG IV SCH (23:30)
[2022-01-20] MEDS ORDERED: Zithromax 500 MG/ 250 ML NaCl Premix 500 MG/250 ML IVPB IV ONE (23:32)
[2022-01-20 23:33] VITALS: BP 132/69; PULSE 84
--- NOTE | 2022-01-21 08:39 | XRAY ---
Indication: Cough and chest pain. Comparison: October 24, 2019 Portable chest demonstrates interval left lung clearing. Again a few incidental calcified granulomas. No focal infiltrate, consolidation, or large effusion. Heart borderline enlarged again with CABG and new left dual-lead pacemaker. Bony thorax intact again with mild osteopenia and degenerative changes. Impression: Nonacute chest with chronic features.
== END 2022-01-20 23:49 | disposition short-term general hospital (02) ==
LOC: ED 21:41
DX: I21.4 Non-ST elevation (NSTEMI) myocardial infarction (principal); J18.9 Pneumonia, unspecified organism; R05.9 Cough, unspecified; R06.02 Shortness of breath; R07.9 Chest pain, unspecified; I10 Essential (primary) hypertension; E78.5 Hyperlipidemia, unspecified; E11.9 Type 2 diabetes mellitus without complications; Z79.899 Other long term (current) drug therapy; Z79.84 Long term (current) use of oral hypoglycemic drugs
CPT/HCPCS: 0241U; 36000; 36415; 71045; 80053; 83880; 84484; 85025; 85379; 85610; 93005; 93041; 94760; 99285; 99291; J0456; J0696; J1644; A9270-GY

== ENCOUNTER 2022-04-28 10:00 | Emergency (ER) | payer MEDICARE, BC ==
--- NOTE | 2022-04-28 10:12 | ERPHSYRPT ---
- History of Present Illness Time Seen by Provider: 04/28/22 10:12 Source: patient Exam Limitations: no limitations Physician History: This is an 81-year-old white male patient of Dr. Jones and communications supervisor Dr. Miller who presents with 2-day history of cough and congestion after being exposed out in the snow on Tuesday prior to evaluation while deer hunting. Patient states he also had some mild central substernal nonradiating chest pressure intermittently since his symptoms began 2 days ago. Patient has a pacemaker in place. He is a former smoker. Patient has a history of hypertension, hyperlipidemia, caq-wfxgdnp-lnztgxjfv diabetes, gastroesophageal reflux disease, chronic renal disease and peripheral vascular disease. He denies significant shortness of breath. Cough Quality/Degree: mild, dry cough Possible Cause: occasional episodes Modifying Factors: Improves With: coughing Associated Symptoms: chest pain/soreness (Described as a mild substernal, no nradiating central chest pressure), cough, No shortness of breath Allergies/Adverse Reactions: prednisone Adverse Reaction (Verified 04/28/22 10:14) Home Medications: Amlodipine/Atorvastatin [Amlodipine-Atorvast 2.5-10 mg] 1 each PO DAILY 09/27/18 [History] Glipizide 5 mg [Glucotrol 5 MG] 5 mg PO BID 09/27/18 [History] Lansoprazole [Prevacid] 30 mg PO DAILY 09/27/18 [History] Losartan Potassium 50 mg [Cozaar 50 MG] 50 mg PO BID 09/27/18 [History] Metformin HCl 500 mg [Glucophage 500 MG] 500 mg PO BID 09/27/18 [History] Propranolol HCl [Inderal Xl] 80 mg PO DAILY 09/27/18 [History] Rosuvastatin Calcium [Crestor] 20 mg PO DAILY 09/27/18 [History] Tamsulosin HCl 0.4 mg [Flomax 0.4 MG] 0.4 mg PO DAILY 09/27/18 [History] Aspirin 81 mg PO DAILY 04/28/22 [History] Chlorthalidone 25 mg PO DAILY 04/28/22 [History] Cranberry 500 mg PO DAILY 04/28/22 [History] Hx Tetanus, Diphtheria Vaccination/Date Given: No Hx Influenza Vaccination/Date Given: No Hx Pneumococcal Vaccination/Date Given: No Travel Risk - International Travel Have you traveled outside of the country in past 3 weeks: No - Coronavirus Screening Are you exhibiting any of the following symptoms?: Yes Symptoms: Cough: New Onset Close contact with a COVID-19 positive Pt in past 14-21 Days: No - Vaccine Status Have you recieved a Covid-19 vaccination: No - Review of Systems Constitutional: No Symptoms Eyes: No Symptoms Ears, Nose, & Throat: No Symptoms Respiratory: Cough, No Dyspnea Cardiac: Chest Pain (Described as a mild, nonradiating, central, substernal) Abdominal/Gastrointestinal: No Symptoms Genitourinary Symptoms: Incontinence Musculoskeletal: No Symptoms Skin: No Symptoms Neurological: No Symptoms Psychological: No Symptoms Endocrine: No Symptoms Hematologic/Lymphatic: No Symptoms Immunological/Allergic: No Symptoms All Other Systems: Reviewed and Negative - Past Medical History Pertinent Past Medical History: Yes Neurological History: No Pertinent History ENT History: No Pertinent History Cardiac History: High Cholesterol, Hypertension, Other Respiratory History: No Pertinent History Endocrine Medical History: Diabetes Type II Musculoskeletal History: No Pertinent History GI Medical History: GERD History: Renal Disease, Other Psycho-Social History: No Pertinent History Male Reproductive Disorders: Prostate Problems - Past Surgical History Past Surgical History: Yes Neuro Surgical History: No Pertinent History Cardiac: CABG Respiratory: No Pertinent History Gastrointestinal: Cholecystectomy Genitourinary: No Pertinent History Musculoskeletal: No Pertinent History Male Surgical History: No Pertinent History Other Surgical History: 4 bypass open heart in 1999, CAROTID surgery/cleaning, - Social History Smoking Status: Former smoker Exposure to second hand smoke: No Drug Use: none Patient Lives Alone: No - Nursing Vital Signs Nursing Vital Signs: Initial Vital Signs Temperature 98.1 F 04/28/22 10:04 Pulse Rate 80 04/28/22 10:04 Respiratory Rate 13 04/28/22 10:04 Blood Pressure 162/98 04/28/22 10:04 O2 Sat by Pulse Oximetry 97 04/28/22 10:04 Pain Scale Pain Intensity 0 - Physical Exam General Appearance: no apparent distress, alert, anxiety Eye Exam: PERRL/EOMI, eyes nml inspection Ears, Nose, Throat Exam: normal ENT inspection, moist mucous membranes Neck Exam: normal inspection, non-tender, supple, full range of motion Respiratory Exam: normal breath sounds, lungs clear, airway intact, No chest tenderness, No respiratory distress Cardiovascular Exam: regular rate/rhythm, normal heart sounds, normal peripheral pulses Gastrointestinal/Abdomen Exam: soft, normal bowel sounds, No tenderness Rectal Exam: not done Back Exam: normal inspection, normal range of motion, No CVA tenderness, No vertebral tenderness Extremity Exam: normal inspection, normal range of motion, pelvis stable Neurologic Exam: alert, oriented x 3, cooperative, fiber design engineer II-XII nml as tested, normal mood/affect, nml cerebellar function, nml station & gait, sensation nml Skin Exam: normal color, warm, dry Lymphatic Exam: No adenopathy SpO2 Interpretation: normal O2 Delivery: Room Air - Course Nursing assessment & vital signs reviewed: Yes EKG Interpreted by Me: RATE (65), Other (AV dual paced rhythm without evidence of acute ischemia. This is unchanged from the EKG dated 03/04/2022.) Ordered Tests: Active Orders 24 hr Category Date Time Status EKG-ER Only STAT Care 04/28/22 10:25 Active IV Insertion STAT Care 04/28/22 10:25 Active Pulse Oximetry (ED) STAT Care 04/28/22 10:25 Active CHEST 1 VIEW (PORTABLE) Stat Exams 04/28/22 10:26 Completed CBC W DIFF Stat Lab 04/28/22 10:44 Completed CMP Stat Lab 04/28/22 10:44 Completed NT PRO BNP Stat Lab 04/28/22 10:44 Completed TROPONIN Q4H Lab 04/28/22 10:44 Completed TROPONIN Q4H Lab 04/28/22 13:25 Completed TROPONIN Q4H Lab 04/28/22 18:30 Ordered Respiratory Therapy Assessment DAILY RT 04/28/22 11:32 Active Medication Summary Discontinued Medications Generic Name Dose Route Start Last Admin Trade Name Freq PRN Reason Stop Dose Admin Albuterol/Ipratropium Confirm 04/28/22 10:34 Ipratropium/Albuterol Sulfate 3 Ml Ampul.Neb Administered 04/28/22 10:35 Dose 3 ml IH .STK-MED ONE Albuterol/Ipratropium 3 ml 04/28/22 11:26 04/28/22 10:35 Ipratropium/Albuterol Sulfate 3 Ml Ampul.Neb IH 04/28/22 11:27 3 ml STAT ONE Administration Aspirin 243 mg 04/28/22 10:25 04/28/22 10:39 Aspirin 81 Mg Tab.Chew PO 04/28/22 10:26 243 mg STAT ONE Administration Aspirin Confirm 04/28/22 10:39 Aspirin 81 Mg Tab.Chew Administered 04/28/22 10:40 Dose 243 mg .ROUTE .STK-MED ONE Lab/Rad Data: Laboratory Result Diagrams 04/28/22 10:44 04/28/22 10:44 Laboratory Results 04/28/22 04/28/22 04/28/22 Range/Units 13:25 10:44 10:44 WBC (4.0-10.5) x10^3/uL RBC (4.1-5.6) x10^6/uL Hgb (12.5-18.0) g/dL Hct (42-50) % MCV (78-100) fL MCH (26-32) pg MCHC (32-36) g/dL RDW (11.5-14.0) % Plt Count (150-450) x10^3/uL MPV (7.5-11.0) fL Gran % (36.0-66.0) % Immature Gran % (Auto) (0.00-0.4) % Nucleat RBC Rel Count (0.00-0.1) % Eos # (Auto) (0-0.5) x10^3/uL Immature Gran # (Auto) (0.00-0.03) x10^3u/L Absolute Lymphs (auto) (1.0-4.6) x10^3/uL Absolute Monos (auto) (0.0-1.3) x10^3/uL Absolute Nucleated RBC (0.00-0.01) x10^3u/L Lymphocytes % (24.0-44.0) % Monocytes % (0.0-12.0) % Eosinophils % (0.00-5.0) % Basophils % (0.0-0.4) % Absolute Granulocytes (1.4-6.9) x10^3/uL Basophils # (0-0.4) x10^3/uL Sodium (137-145) mmol/L Potassium (3.5-5.1) mmol/L Chloride (98-107) mmol/L Carbon Dioxide (22-30) mmol/L Anion Gap (5-15) MEQ/L BUN (9-20) mg/dL Creatinine (0.66-1.25) mg/dL Estimated GFR ML/MIN Glucose (74-106) mg/dL Calcium (8.4-10.2) mg/dL Total Bilirubin (0.2-1.3) mg/dL AST (17-59) U/L ALT (0-50) U/L Alkaline Phosphatase (38-126) U/L Troponin I < 0.012 < 0.012 (0.000-0.034) ng/mL NT-Pro-B Natriuret Pep (0-1800) pg/mL Serum Total Protein (6.3-8.2) g/dL Albumin (3.5-5.0) g/dL Influenza Type A Ag NEGATIVE (NEGATIVE) Influenza Type B Ag NEGATIVE (NEGATIVE) RSV (PCR) NEGATIVE (Negative) SARS-CoV-2 (PCR) NEGATIVE (NEGATIVE) 04/28/22 04/28/22 Range/Units 10:44 10:44 WBC 9.1 (4.0-10.5) x10^3/uL RBC 4.68 (4.1-5.6) x10^6/uL Hgb 13.6 (12.5-18.0) g/dL Hct 42.3 (42-50) % MCV 90.4 (78-100) fL MCH 29.1 (26-32) pg MCHC 32.2 (32-36) g/dL RDW 14.2 H (11.5-14.0) % Plt Count 201 (150-450) x10^3/uL MPV 10.7 (7.5-11.0) fL Gran % 79.1 H (36.0-66.0) % Immature Gran % (Auto) 0.2 (0.00-0.4) % Nucleat RBC Rel Count 0.0 (0.00-0.1) % Eos # (Auto) 0.32 (0-0.5) x10^3/uL Immature Gran # (Auto) 0.02 (0.00-0.03) x10^3u/L Absolute Lymphs (auto) 0.78 L (1.0-4.6) x10^3/uL Absolute Monos (auto) 0.75 (0.0-1.3) x10^3/uL Absolute Nucleated RBC 0.00 (0.00-0.01) x10^3u/L Lymphocytes % 8.6 L (24.0-44.0) % Monocytes % 8.2 (0.0-12.0) % Eosinophils % 3.5 (0.00-5.0) % Basophils % 0.4 (0.0-0.4) % Absolute Granulocytes 7.19 H (1.4-6.9) x10^3/uL Basophils # 0.04 (0-0.4) x10^3/uL Sodium 136 L (137-145) mmol/L Potassium 4.1 (3.5-5.1) mmol/L Chloride 99 (98-107) mmol/L Carbon Dioxide 32 H (22-30) mmol/L Anion Gap 10.2 (5-15) MEQ/L BUN 28 H (9-20) mg/dL Creatinine 1.43 H (0.66-1.25) mg/dL Estimated GFR 50.6 ML/MIN Glucose 113 H (74-106) mg/dL Calcium 9.1 (8.4-10.2) mg/dL Total Bilirubin 1.40 H (0.2-1.3) mg/dL AST 34 (17-59) U/L ALT 23 (0-50) U/L Alkaline Phosphatase 70 (38-126) U/L Troponin I (0.000-0.034) ng/mL NT-Pro-B Natriuret Pep 545 (0-1800) pg/mL Serum Total Protein 7.5 (6.3-8.2) g/dL Albumin 4.4 (3.5-5.0) g/dL Influenza Type A Ag (NEGATIVE) Influenza Type B Ag (NEGATIVE) RSV (PCR) (Negative) SARS-CoV-2 (PCR) (NEGATIVE) - Progress Progress: improved, re-examined Air Movement: good Progress Note: 04/28/22 10:57 Chest x-ray is nonacute with chronic features - Departure Departure Disposition: Home Clinical Impression: Bronchitis Condition: Stable Critical Care Time: No Referrals: NICOLE JONES MD [Primary Care Provider] - Follow up/PCP as directed Additional Instructions: Drink plenty fluids. Take your medication as prescribed. Follow-up with your primary care physician for further evaluation and management. Prescriptions: Hydrocodone/Acetaminophen [Hydrocodone-Acetamn 7.5-325/15] 10 ml PO Q8H PRN PRN #120 ml MDD 30 ml PRN Reason: Cough Azithromycin 250 mg [Zithromax 250 MG TABLET] 250 mg PO ZPACK #6 tablet
[2022-04-28] MEDS ORDERED: BABY ASPIRIN 81 MG CHEW PO ONE (10:25)
[2022-04-28] MEDS ORDERED: DUONEB 0.5-3 MG/3 ml Neb IH ONE ×2 (10:34→11:26)
[2022-04-28] MEDS ORDERED: BABY ASPIRIN 81 MG CHEW ONE (10:39)
--- NOTE | 2022-04-28 10:48 | XRAY ---
Indication: Cough. Comparison: January 20, 2022 Portable chest remains inflated and clear. Heart remains borderline enlarged with CABG and left pacemaker. Bony thorax intact again with osteopenia and degenerative changes. Impression: Continued nonacute chest with chronic features.
[2022-04-28 10:53] LABS: Absolute Neutrophil Ct (ANC) 7.19 x10^3/uL (1.4-6.9); Basophil (Absolute #) 0.04 x10^3/uL (0-0.4); Eosinophil % 3.5 % (0.00-5.0); Eosinophil (Absolute #) 0.32 x10^3/uL (0-0.5); Hematocrit 42.3 % (42-50); Hemoglobin 13.6 g/dL (12.5-18.0); Lymphocyte (Absolute #) 0.78 x10^3/uL (1.0-4.6); Lymphocytes % 8.6 % (24.0-44.0); Mean Cell Volume 90.4 fL (78-100); Mean Corpuscular Hemoglobin 29.1 pg (26-32); Mean Corpuscular Hgb Concent. 32.2 g/dL (32-36); Mean Platelet Volume 10.7 fL (7.5-11.0); Monocyte (Absolute #) 0.75 x10^3/uL (0.0-1.3); Monocytes % 8.2 % (0.0-12.0); Neutrophil % 79.1 % (36.0-66.0); Platelet Count 201 x10^3/uL (150-450); Red Blood Count 4.68 x10^6/uL (4.1-5.6); Red Cell Distribution Width 14.2 % (11.5-14.0); White Blood Count 9.1 x10^3/uL (4.0-10.5)
[2022-04-28 11:16] LABS: ALBUMIN 4.4 g/dL (3.5-5.0); ANION GAP 10.2 MEQ/L (5-15); BILIRUBIN,TOTAL 1.4 mg/dL (0.2-1.3); Calcium 9.1 mg/dL (8.4-10.2); Creatinine 1 1.43 mg/dL (0.66-1.25); EST GLOMERULAR FILTRATION RATE 50.6 ML/MIN; Potassium 4.1 mmol/L (3.5-5.1); Total Protein 7.5 g/dL (6.3-8.2)
[2022-04-28 11:27] LABS: INFLUENZA A NEGATIVE (NEGATIVE); INFLUENZA B NEGATIVE (NEGATIVE); RESPIRATORY SYNCTIAL VIRUS NEGATIVE (Negative); SARS-CoV-2 Xpert Express NEGATIVE (NEGATIVE)
[2022-04-28 13:30] VITALS: O2SAT 94
[2022-04-28 14:10] VITALS: BP 128/74; PULSE 63
== END 2022-04-28 14:37 | disposition home or self-care (01) ==
LOC: ED 10:00
DX: J40 Bronchitis, not specified as acute or chronic (principal); R05.1 Acute cough; R09.81 Nasal congestion; R07.9 Chest pain, unspecified; I10 Essential (primary) hypertension; E78.5 Hyperlipidemia, unspecified; E11.9 Type 2 diabetes mellitus without complications; Z79.84 Long term (current) use of oral hypoglycemic drugs; Z79.891 Long term (current) use of opiate analgesic; Z79.899 Other long term (current) drug therapy; Z28.310 Unvaccinated for COVID-19
CPT/HCPCS: 0241U; 36000; 36415; 71045; 80053; 83880; 84484; 85025; 93005; 94640; 94760; 99284; A9270-GY

== ENCOUNTER 2024-04-04 11:14 | Emergency (ER) | payer MEDICARE, BC ==
--- NOTE | 2024-04-04 11:19 | ERPHSYRPT ---
- History of Present Illness Time Seen by Provider: 04/04/24 11:19 Source: patient, family Exam Limitations: no limitations Physician History: This is an 83-year-old white male patient of Dr. Jones who arrives by private vehicle and complains of sore throat, mild cough and sinus drainage that has been present for 4 days. Patient does not want any type of steroids. He has not had a fever. He denies chest pain. He denies shortness of breath. Patient has a history of hyperlipidemia, diabetes, hypertension, prostate issues, gastroesophageal reflux disease, peripheral vascular disease (carotid surgery in the past), and coronary artery disease, CABG). Timing/Duration: gradual onset, days (4) Severity: mild (To moderate) Prearrival Treatment: no prearrival treatment Modifying Factors: Improves With: coughing (Mild) Associated Symptoms: cough (Mild), nasal congestion/drainage, sore throat, No facial pain/swelling, No difficulty swallowing, No voice change Allergies/Adverse Reactions: prednisone Adverse Reaction (Verified 04/28/22 10:14) Home Medications: Amlodipine/Atorvastatin [Amlodipine-Atorvast 2.5-10 mg] 1 each PO DAILY 09/27/18 [History] Glipizide 5 mg [Glucotrol 5 MG] 5 mg PO BID 09/27/18 [History] Lansoprazole [Prevacid] 30 mg PO DAILY 09/27/18 [History] Losartan Potassium 50 mg [Cozaar 50 MG] 50 mg PO BID 09/27/18 [History] Metformin HCl 500 mg [Glucophage 500 MG] 500 mg PO BID 09/27/18 [History] Propranolol HCl [Inderal Xl] 80 mg PO DAILY 09/27/18 [History] Rosuvastatin Calcium [Crestor] 20 mg PO DAILY 09/27/18 [History] Tamsulosin HCl 0.4 mg [Flomax 0.4 MG] 0.4 mg PO DAILY 09/27/18 [History] Aspirin 81 mg PO DAILY 04/28/22 [History] Chlorthalidone 25 mg PO DAILY 04/28/22 [History] Cranberry 500 mg PO DAILY 04/28/22 [History] Hx Tetanus, Diphtheria Vaccination/Date Given: No Hx Influenza Vaccination/Date Given: No Hx Pneumococcal Vaccination/Date Given: No Travel Risk - International Travel Have you traveled outside of the country in past 3 weeks: No - Emerging Infectious Disease Are you exhibiting symptoms associated with any current EIDs: Yes Symptoms: Cough: New Onset - Review of Systems Constitutional: No Symptoms Eyes: No Symptoms Ears, Nose, & Throat: Nose Congestion, Nose Discharge, Throat Pain Respiratory: Cough, No Dyspnea Cardiac: No Symptoms Abdominal/Gastrointestinal: No Symptoms Genitourinary Symptoms: No Symptoms Musculoskeletal: No Symptoms Skin: No Symptoms Neurological: No Symptoms Psychological: No Symptoms Endocrine: No Symptoms Hematologic/Lymphatic: No Symptoms Immunological/Allergic: No Symptoms All Other Systems: Reviewed and Negative - Past Medical History Pertinent Past Medical History: Yes Neurological History: No Pertinent History ENT History: No Pertinent History Cardiac History: High Cholesterol, Hypertension, Other Respiratory History: No Pertinent History Endocrine Medical History: Diabetes Type II Musculoskeletal History: No Pertinent History GI Medical History: GERD History: Renal Disease, Other Psycho-Social History: No Pertinent History Male Reproductive Disorders: Prostate Problems - Past Surgical History Past Surgical History: Yes Neuro Surgical History: No Pertinent History Cardiac: CABG Respiratory: No Pertinent History Gastrointestinal: Cholecystectomy Genitourinary: No Pertinent History Musculoskeletal: No Pertinent History Male Surgical History: No Pertinent History Other Surgical History: 4 bypass open heart in 1999, CAROTID surgery/cleaning, - Social History Smoking Status: Former smoker Exposure to second hand smoke: No Drug Use: none Patient Lives Alone: No - Nursing Vital Signs Nursing Vital Signs: Initial Vital Signs Temperature 97.3 F 04/04/24 11:22 Pulse Rate 76 04/04/24 11:22 Respiratory Rate 18 04/04/24 11:22 Blood Pressure 138/84 04/04/24 11:22 O2 Sat by Pulse Oximetry 95 04/04/24 11:22 Pain Scale Pain Intensity 0 - Physical Exam General Appearance: no apparent distress, alert Ear Exam: bilateral ear: auricle normal, canal normal, TM normal Nasal Exam: normal inspection, discharge (Clear, mild) Throat Exam: normal, pharynx normal, moist mucus membranes, No dental tenderness, No excessive drooling Neck Exam: normal inspection, non-tender, supple, full range of motion Cardiovascular/Respiratory Exam: chest non-tender, normal breath sounds, regular rate/rhythm, heart sounds normal, no ecchymosis, no JVD, no M/R/G, no respiratory distress, normal peripheral pulses Abdominal Exam: non-tender, soft, no organomegaly, no hernia, No guarding, No tenderness Neurologic Exam: alert, oriented x 3, cooperative, smt operator II-XII nml as tested, normal mood/affect, nml cerebellar function, nml station & gait, sensation nml Skin Exam: normal color, warm, dry SpO2 Interpretation: normal O2 Delivery: Room Air - Course Nursing assessment & vital signs reviewed: Yes Ordered Tests: Active Orders 24 hr Category Date Time Status CHEST 1 VIEW (PORTABLE) Stat Exams 04/04/24 11:32 Completed Lab/Rad Data: Laboratory Results 04/04/24 04/04/24 Range/Units 11:45 11:45 Influenza Type A Ag NEGATIVE (NEGATIVE) Influenza Type B Ag NEGATIVE (NEGATIVE) RSV (PCR) NEGATIVE (NEGATIVE) SARS-CoV-2 (PCR) NEGATIVE (NEGATIVE) Group A Strep Antibody NOT DETECTED (NEGATIVE) - Progress Progress: unchanged Progress Note: 04/04/24 12:21 My medical decision making and the assignment of low complexity to this patient's medical issue today is based on review of the patient's past medical history, review of the patient's medication list, reviewed patient drug allergy list, history present illness and physical findings on examination. The workup today includes chest x-ray and viral swabs. Differential diagnosis includes but is not limited to pneumonia, upper respiratory infection, sinusitis, viral illness The chest x-ray was interpreted by radiologist and I reviewed the impression. The impression states no acute cardiopulmonary process. There are chronic findings present. 04/04/24 12:55 I interpreted the patient's laboratory data results. Based on laboratory results, the patient has no acute, emergent medical issue. Counseled pt/family regarding: lab results, diagnosis, need for follow-up, rad results Medical Desision Making - Diagnostic Testing Diagnostic test were ordered, analyzed, and reviewed by me: Yes Radiological Interpretation: Reviewed by me, Teleradiologist Report - Risk of complications The pt has a mod risk of morbidity or mortality based on: Need for prescription drug management - Departure Departure Disposition: Home Clinical Impression: Upper respiratory infection Condition: Stable Critical Care Time: No Referrals: NICOLE JONES MD [Primary Care Provider] - Follow up/PCP as directed Additional Instructions: Take your medications as prescribed. Call your primary care provider today, 04/04/2024, to make arrangement for follow-up appointment for further evaluation and management. Prescriptions: Amoxicillin 500 mg Cap [Amoxil 500 mg] 500 mg PO TID #21 cap Chlorpheniramine Maleate 4 mg PO Q6H PRN #12 tablet PRN Reason: Allergies
[2024-04-04 11:28] VITALS: TEMP 97.3
[2024-04-04 11:58] VITALS: RESP 20
--- NOTE | 2024-04-04 12:01 | XRAY ---
Indication: Cough. Comparison: April 28, 2022 Portable chest remains inflated and clear with incidental small left base calcified granuloma. Heart not enlarged again with small hilar calcified nodes, CABG, and left pacemaker. Bony thorax intact again with osteopenia, mild degenerative changes, and minimal levoscoliosis. Impression: Continued nonacute chest with chronic features..
[2024-04-04 12:33] LABS: INFLUENZA A NEGATIVE (NEGATIVE); INFLUENZA B NEGATIVE (NEGATIVE); RESPIRATORY SYNCTIAL VIRUS NEGATIVE (NEGATIVE); SARS-CoV-2 Xpert Express NEGATIVE (NEGATIVE)
[2024-04-04 13:00] VITALS: BP 148/62; PULSE 88; O2SAT 91
== END 2024-04-04 13:10 | disposition home or self-care (01) ==
LOC: ED 11:14
DX: J06.9 Acute upper respiratory infection, unspecified (principal); J02.9 Acute pharyngitis, unspecified; R05.1 Acute cough; E78.5 Hyperlipidemia, unspecified; E11.9 Type 2 diabetes mellitus without complications; I10 Essential (primary) hypertension; Z79.84 Long term (current) use of oral hypoglycemic drugs; Z79.899 Other long term (current) drug therapy
CPT/HCPCS: 0241U; 71045; 87651; 99283

== ENCOUNTER 2024-08-23 06:05 | Day surgery (SDC) | payer MEDICARE, BC ==
[2024-08-23] MEDS: Lactated Ringers 1,000 ML IV SCH (06:48)
[2024-08-23 06:58] VITALS: RESP 18
[2024-08-23 07:01] LABS: Absolute Neutrophil Ct (ANC) 6.13 x10^3/uL (1.78-5.38); BASOPHIL % 0.5 % (0.2-1.2); Basophil (Absolute #) 0.04 x10^3/uL (0.01-0.08); Eosinophil (Absolute #) 0.25 x10^3/uL (0.04-0.54); Hematocrit 45.7 % (40.1-51.0); IMMATURE GRAN # 0.02 x10^3u/L (0.001-0.031); IMMATURE GRAN % 0.2 % (0.001-0.429); Lymphocyte (Absolute #) 1.08 x10^3/uL (1.32-3.57); Mean Cell Volume 89.1 fL (79.0-92.2); Mean Corpuscular Hemoglobin 29.2 pg (25.7-32.2); Mean Corpuscular Hgb Concent. 32.8 g/dL (32.3-36.5); Monocyte (Absolute #) 0.81 x10^3/uL (0.30-0.82); Monocytes % 9.7 % (5.3-12.2); Neutrophil % 73.6 % (34.0-67.9); Platelet Count 172 x10^3/uL (163-337); Red Blood Count 5.13 x10^6/uL (4.63-6.08); White Blood Count 8.3 x10^3/uL (4.23-9.07)
[2024-08-23 07:55] LABS: ANION GAP 16.4 MEQ/L (5-15); Calcium 9.5 mg/dL (8.4-10.2); Creatinine 1 1.79 mg/dL (0.66-1.25); EST GLOMERULAR FILTRATION RATE 37.1 ML/MIN; Potassium 3.9 mmol/L (3.5-5.1)
[2024-08-23] MEDS ORDERED: propofoL IV ONE ×2 (08:01→08:09)
[2024-08-23] MEDS ORDERED: PHENYLEPHRINE HCL ONE (08:22)
--- NOTE | 2024-08-23 08:40 | PCM.DCORD ---
- Discharge Disposition: Home, Self-Care Condition: Stable Prescriptions: New Ciprofloxacin [Cipro 500 MG] 500 mg PO BID #14 tablet Metronidazole 500 mg [Flagyl 500 MG] 500 mg PO TID #21 tablet Continue Rosuvastatin Calcium [Crestor] 20 mg PO DAILY Lansoprazole [Prevacid] 30 mg PO DAILY Metformin HCl 500 mg [Glucophage 500 MG] 500 mg PO BID Losartan Potassium 50 mg [Cozaar 50 MG] 50 mg PO BID Glipizide 5 mg [Glucotrol 5 MG] 5 mg PO BID Amlodipine/Atorvastatin [Amlodipine-Atorvast 2.5-10 mg] 1 each PO DAILY Tamsulosin HCl 0.4 mg [Flomax 0.4 MG] 0.4 mg PO DAILY Propranolol HCl [Inderal Xl] 80 mg PO DAILY Cranberry 500 mg PO DAILY Multivitamin 1 each PO DAILY Magnesium 200 mg PO UD Empagliflozin [Jardiance] 1 tab PO DAILY Furosemide 20 mg [Lasix 20 mg] 20 mg PO DAILY Betamethasone Valerate 1 applic TP DAILY PRN PRN PRN Reason: Allergies Nitroglycerin 0.4 mg SL . Q 5MIN X 3 PRN PRN Reason: chest pain Discontinued Aspirin 81 mg PO DAILY Follow up with: NICOLE JONES MD [Primary Care Provider] - 1 Week
[2024-08-23 08:58] VITALS: PULSE 61
[2024-08-23 09:16] VITALS: BP 149/82; TEMP 96.5; O2SAT 95
[2024-08-23 10:08] LABS: 027 TOX PROD PRESUMPTIVE NEGATIVE (NEGATIVE); TOXIGENIC C. DIFF ORG NEGATIVE (NEGATIVE)
--- NOTE | 2024-08-24 11:09 | OP ---
SURGERY DATE/TIME: 08/23/2024 [id number] PREOPERATIVE DIAGNOSIS: Rectal bleeding. POSTOPERATIVE DIAGNOSES: 1) Rectosigmoid colitis. 2) Proximal sigmoid colon polyp. PROCEDURE PERFORMED: Colonoscopy. SURGEON: David Man MD ANESTHESIA: MAC by David Mace CRNA. ESTIMATED BLOOD LOSS: Minimal. SPECIMENS: Hot forceps polypectomy from proximal sigmoid colon and random cold forceps biopsies from rectosigmoid colon x3. DESCRIPTION OF PROCEDURE AND FINDINGS: After informed written consent was obtained, the patient was taken to the endoscopy suite. He was placed in the left lateral decubitus position and then, anesthesia was titrated to the desired level of consciousness. Digital rectal exam showed normal sphincter tone and no internal lesions. Upon entry into the rectum, there was diffuse colitis-type changes with no active bleeding. There was also mucus and liquid stool present in the distal sigmoid and rectal area again, diffuse and circumferential in that region. The entire colonic mucosa was traversed. The level of the cecum was reached and verified with direct visualization of the ileocecal valve. Upon withdrawal, in the proximal sigmoid colon, there was a small sessile polyp grasped with the forceps, cauterized and removed in its entirety, sent for pathology testing. Upon further withdrawal in the distal sigmoid colon, again, those colitis-type changes were noted with some mucousy stool. I collected stool samples from the distal sigmoid, sent for stool culture, ova and parasites, as well as C difficile testing. I then took 2 cold forceps biopsies from the distal sigmoid colon and 1 from the rectal area. They were all sent in the same specimen container. Prior to withdrawal, retroflexion showed no internal lesions. Scope was removed. Patient was transferred to the recovery room in good condition. He is going to be started empirically on Cipro and Flagyl and was advised to hold his aspirin for the next week. Follow up in 1 week for pathology results.
== END 2024-08-23 09:25 | disposition home or self-care (01) ==
LOC: SDC 06:05
PROVIDERS: ATTEND Family Medicine
DX: D12.5 Benign neoplasm of sigmoid colon (principal); K62.5 Hemorrhage of anus and rectum; K52.9 Noninfective gastroenteritis and colitis, unspecified
CPT/HCPCS: 36415; 80048; 85025; 87045; 87046; 87177; 87209; 87328; 87329; 87427; 87493; 99100; J2371; J2704

== ENCOUNTER 2024-09-09 14:42 | Observation (INO) | payer MEDICARE, BC ==
[2024-09-09 15:59] LABS: Absolute Neutrophil Ct (ANC) 4.46 x10^3/uL (1.78-5.38); BASOPHIL % 0.7 % (0.2-1.2); Basophil (Absolute #) 0.05 x10^3/uL (0.01-0.08); Eosinophil % 5.2 % (0.8-7.0); Eosinophil (Absolute #) 0.35 x10^3/uL (0.04-0.54); Hematocrit 43.4 % (40.1-51.0); Hemoglobin 14.1 g/dL (13.7-17.5); IMMATURE GRAN # 0.02 x10^3u/L (0.001-0.031); IMMATURE GRAN % 0.3 % (0.001-0.429); Lymphocytes % 13.5 % (21.8-53.1); Mean Cell Volume 89.9 fL (79.0-92.2); Mean Corpuscular Hemoglobin 29.2 pg (25.7-32.2); Mean Corpuscular Hgb Concent. 32.5 g/dL (32.3-36.5); Mean Platelet Volume 11.1 fL (9.4-12.4); Monocyte (Absolute #) 0.91 x10^3/uL (0.30-0.82); Monocytes % 13.6 % (5.3-12.2); Neutrophil % 66.7 % (34.0-67.9); Platelet Count 180 x10^3/uL (163-337); Red Blood Count 4.83 x10^6/uL (4.63-6.08); Red Cell Distribution Width 14.6 % (11.6-14.4); White Blood Count 6.7 x10^3/uL (4.23-9.07)
--- NOTE | 2024-09-09 16:00 | ERPHSYRPT ---
- History of Present Illness Time Seen by Provider: 09/09/24 15:40 Source: patient Exam Limitations: no limitations Patient Subjective Stated Complaint: patient states 3 or 4 days ago he had severe spell of diarhea, then his throats been hurting off and on. . says stool never has stopped with being watered down and that has been going on for a month Triage Nursing Assessment: pt is alert nad oriented x3, he has some wheezes on expiration upper lobes. thorat is reddened seems little short of breath, says he has been having loose stools for over a month. pt. states hes been coughing alot of nite Physician History: 84yo m pmhx CAD, afib s/p ablation w/ pacemaker presents via private vehicle for cough, chills, body aches x 4 days. Pt reports his cough is productive, reports he has felt fatigued and run down for the past few days. Pt denies any vomiting or diarrhea. Pt denies any cp or sob. Pt does endorse some wheezing. Pt reports he is scheduled for a cardiology appt on 09/12/24 for consultation to get coronary artery stents. Timing/Duration: day(s) (4) Cough Quality/Degree: moderate, productive cough Associated Symptoms: chills, cough, nasal drainage, sore throat, wheezing, No chest pain/soreness, No shortness of breath Allergies/Adverse Reactions: prednisone Adverse Reaction (Verified 09/09/24 15:09) Home Medications: Amlodipine/Atorvastatin [Amlodipine-Atorvast 2.5-10 mg] 1 each PO DAILY 09/27/18 [History] Glipizide 5 mg [Glucotrol 5 MG] 5 mg PO BID 09/27/18 [History] Lansoprazole [Prevacid] 30 mg PO DAILY 09/27/18 [History] Losartan Potassium 50 mg [Cozaar 50 MG] 50 mg PO BID 09/27/18 [History] Metformin HCl 500 mg [Glucophage 500 MG] 500 mg PO BID 09/27/18 [History] Propranolol HCl [Inderal Xl] 80 mg PO DAILY 09/27/18 [History] Rosuvastatin Calcium [Crestor] 20 mg PO DAILY 09/27/18 [History] Tamsulosin HCl 0.4 mg [Flomax 0.4 MG] 0.4 mg PO DAILY 09/27/18 [History] Cranberry 500 mg PO DAILY 04/28/22 [History] Betamethasone Valerate 1 applic TP DAILY PRN PRN 07/19/24 [History] Empagliflozin [Jardiance] 1 tab PO DAILY 07/19/24 [History] Furosemide 20 mg [Lasix 20 mg] 20 mg PO DAILY 07/19/24 [History] Magnesium 200 mg PO UD 07/19/24 [History] Multivitamin 1 each PO DAILY 07/19/24 [History] Nitroglycerin 0.4 mg SL . Q 5MIN X 3 PRN 07/19/24 [History] Hx Tetanus, Diphtheria Vaccination/Date Given: No Hx Influenza Vaccination/Date Given: No Hx Pneumococcal Vaccination/Date Given: No Immunizations Up to Date: No Travel Risk - International Travel Have you traveled outside of the country in past 3 weeks: No - Emerging Infectious Disease Are you exhibiting symptoms associated with any current EIDs: No Symptoms: Cough: New Onset - Review of Systems Constitutional: Chills, Fatigue, No Fever Ears, Nose, & Throat: Nose Congestion, Sinus Drainage, Throat Pain, No Throat Swelling, No Hoarse, No Painful Swallowing, No Stridor Respiratory: Cough, Wheezing, No Dyspnea, No Dyspnea on Exertion (BARBOZA), No Stridor Cardiac: No Symptoms Abdominal/Gastrointestinal: No Symptoms - Past Medical History Pertinent Past Medical History: Yes Neurological History: No Pertinent History ENT History: No Pertinent History Cardiac History: High Cholesterol, Hypertension, Other Respiratory History: No Pertinent History Endocrine Medical History: Diabetes Type II Musculoskeletal History: No Pertinent History GI Medical History: GERD History: Renal Disease, Other Psycho-Social History: No Pertinent History Male Reproductive Disorders: Prostate Problems - Past Surgical History Past Surgical History: Yes Neuro Surgical History: No Pertinent History Cardiac: CABG Respiratory: No Pertinent History Gastrointestinal: Cholecystectomy Genitourinary: No Pertinent History Musculoskeletal: No Pertinent History Male Surgical History: No Pertinent History Other Surgical History: 4 bypass open heart in 1999, CAROTID surgery/cleaning, - Social History Smoking Status: Former smoker Drug Use: none - Social Determinants of Health Will the patient participate in the screening: Yes Do you worry about a steady place to live?: No Do you have any problems with any of the following?: No known problems In the past 12 months,have you had to go without utilities?: No Transportation Issues: No Has anyone in your support network made you feel unsafe?: No Have you or anyone in your house had to go w/o enough food: No - Nursing Vital Signs Nursing Vital Signs: Initial Vital Signs Pulse Rate 63 09/09/24 14:43 Respiratory Rate 14 09/09/24 14:43 Blood Pressure 100/53 09/09/24 14:43 O2 Sat by Pulse Oximetry 95 09/09/24 14:43 Pain Scale Pain Intensity 0 - Physical Exam General Appearance: no apparent distress, alert Ears, Nose, Throat Exam: normal ENT inspection, pharynx normal, moist mucous mem branes Respiratory Exam: lungs clear, airway intact, wheezing, No chest tenderness, No respiratory distress, No diminished breath sounds, No crackles/rales, No rhonchi, No stridor Cardiovascular Exam: regular rate/rhythm, normal heart sounds, normal peripheral pulses, No edema Gastrointestinal/Abdomen Exam: soft, normal bowel sounds, No tenderness Neurologic Exam: alert, oriented x 3, cooperative SpO2 Interpretation: normal SpO2: 94 O2 Delivery: Room Air - Course EKG Interpreted by Me: RATE (70), Non-specific ST Changes (leads V1-V5), Other (paced rhythm, no change from prior ekg on 08/22/24) Ordered Tests: Active Orders 24 hr Category Date Time Status CHEST 2 VIEWS (PA AND LAT) Stat Exams 09/09/24 16:35 Taken CBC W DIFF Stat Lab 09/09/24 15:25 Completed CMP Stat Lab 09/09/24 15:25 Completed Lactic Acid Stat Lab 09/09/24 16:15 Completed PROCALCITONIN Stat Lab 09/09/24 15:25 Completed TROPONIN Q4H Lab 09/09/24 15:25 Completed TROPONIN Q4H Lab 09/09/24 20:00 Ordered TROPONIN Q4H Lab 09/10/24 00:00 Ordered Respiratory Therapy Assessment DAILY RT 09/09/24 16:09 Active Medication Summary Discontinued Medications Generic Name Dose Route Start Last Admin Trade Name Freq PRN Reason Stop Dose Admin Albuterol/Ipratropium 3 ml 09/09/24 15:55 09/09/24 16:04 Ipratropium/Albuterol Sulfate 3 Ml Ampul.Neb IH 09/09/24 15:56 3 ml STAT ONE Administration Albuterol/Ipratropium Confirm 09/09/24 16:01 Ipratropium/Albuterol Sulfate 3 Ml Ampul.Neb Administered 09/09/24 16:02 Dose 3 ml IH .STK-MED ONE Lab/Rad Data: Laboratory Result Diagrams 09/09/24 15:25 09/09/24 15:25 Laboratory Results 09/09/24 09/09/24 09/09/24 Range/Units 16:15 15: 15:25 WBC (4.23-9.07) x10^3/uL RBC (4.63-6.08) x10^6/uL Hgb (13.7-17.5) g/dL Hct (40.1-51.0) % MCV (79.0-92.2) fL MCH (25.7-32.2) pg MCHC (32.3-36.5) g/dL RDW (11.6-14.4) % Plt Count (163-337) x10^3/uL MPV (9.4-12.4) fL Gran % (34.0-67.9) % Immature Gran % (Auto) (0.001-0.429) % Nucleat RBC Rel Count (0.00-0.2) % Eos # (Auto) (0.04-0.54) x10^3/uL Immature Gran # (Auto) (0.001-0.031) x10^3u/L Absolute Lymphs (auto) (1.32-3.57) x10^3/uL Absolute Monos (auto) (0.30-0.82) x10^3/uL Absolute Nucleated RBC (0.00-0.012) x10^3u/L Lymphocytes % (21.8-53.1) % Monocytes % (5.3-12.2) % Eosinophils % (0.8-7.0) % Basophils % (0.2-1.2) % Absolute Granulocytes (1.78-5.38) x10^3/uL Basophils # (0.01-0.08) x10^3/uL Sodium 143 (135-145) mmol/L Potassium 4.3 (3.5-5.1) mmol/L Chloride 103 (98-107) mmol/L Carbon Dioxide 27 (22-30) mmol/L Anion Gap 17.2 H (5-15) MEQ/L BUN 35 H (9-20) mg/dL Creatinine 2.10 H (0.66-1.25) mg/dL Estimated GFR 30.7 ML/MIN Glucose 107 H (74-106) mg/dL Lactic Acid 1.3 (0.4-2.0) Calcium 9.1 (8.4-10.2) mg/dL Total Bilirubin 0.70 (0.2-1.3) mg/dL AST 30 (17-59) U/L ALT 24 (0-50) U/L Alkaline Phosphatase 65 (38-126) U/L Troponin I < 0.012 (0.000-0.033) ng/mL Serum Total Protein 6.6 (6.3-8.2) g/dL Albumin 4.1 (3.5-5.0) g/dL Procalcitonin 0.117 H (0.030-0.080) ng/mL Influenza Type A Ag (NEGATIVE) Influenza Type B Ag (NEGATIVE) RSV (PCR) (NEGATIVE) SARS-CoV-2 (PCR) (NEGATIVE) Group A Strep Antibody (NEGATIVE) 09/09/24 09/09/24 Range/Units 15:25 15:25 WBC 6.7 (4.23-9.07) x10^3/uL RBC 4.83 (4.63-6.08) x10^6/uL Hgb 14.1 (13.7-17.5) g/dL Hct 43.4 (40.1-51.0) % MCV 89.9 (79.0-92.2) fL MCH 29.2 (25.7-32.2) pg MCHC 32.5 (32.3-36.5) g/dL RDW 14.6 H (11.6-14.4) % Plt Count 180 (163-337) x10^3/uL MPV 11.1 (9.4-12.4) fL Gran % 66.7 (34.0-67.9) % Immature Gran % (Auto) 0.3 (0.001-0.429) % Nucleat RBC Rel Count 0.0 (0.00-0.2) % Eos # (Auto) 0.35 (0.04-0.54) x10^3/uL Immature Gran # (Auto) 0.02 (0.001-0.031) x10^3u/L Absolute Lymphs (auto) 0.90 L (1.32-3.57) x10^3/uL Absolute Monos (auto) 0.91 H (0.30-0.82) x10^3/uL Absolute Nucleated RBC 0.00 (0.00-0.012) x10^3u/L Lymphocytes % 13.5 L (21.8-53.1) % Monocytes % 13.6 H (5.3-12.2) % Eosinophils % 5.2 (0.8-7.0) % Basophils % 0.7 (0.2-1.2) % Absolute Granulocytes 4.46 (1.78-5.38) x10^3/uL Basophils # 0.05 (0.01-0.08) x10^3/uL Sodium (135-145) mmol/L Potassium (3.5-5.1) mmol/L Chloride (98-107) mmol/L Carbon Dioxide (22-30) mmol/L Anion Gap (5-15) MEQ/L BUN (9-20) mg/dL Creatinine (0.66-1.25) mg/dL Estimated GFR ML/MIN Glucose (74-106) mg/dL Lactic Acid (0.4-2.0) Calcium (8.4-10.2) mg/dL Total Bilirubin (0.2-1.3) mg/dL AST (17-59) U/L ALT (0-50) U/L Alkaline Phosphatase (38-126) U/L Troponin I (0.000-0.033) ng/mL Serum Total Protein (6.3-8.2) g/dL Albumin (3.5-5.0) g/dL Procalcitonin (0.030-0.080) ng/mL Influenza Type A Ag NEGATIVE (NEGATIVE) Influenza Type B Ag NEGATIVE (NEGATIVE) RSV (PCR) POSITIVE A (NEGATIVE) SARS-CoV-2 (PCR) NEGATIVE (NEGATIVE) Group A Strep Antibody NOT DETECTED (NEGATIVE) - Progress Progress: improved Air Movement: fair Progress Note: 09/09/24 17:00 RSV +, covid/flu/strep negative right lower lobe consolidation on cxr - will start rocephin in setting of significant cardiac hx and audible wheezes, I believe pt would be appropriate for admission for obs will call hospitalist to discuss admission 09/09/24 17:07 I spoke w/ Dr Pham who is willing to accept pt for obs Blood Culture(s) Obtained: No Antibiotics given: No Will see patient in: hospital (observation) Counseled pt/family regarding: lab results, diagnosis, need for follow-up, rad results Medical Desision Making - Diagnostic Testing Diagnostic test were ordered, analyzed, and reviewed by me: Yes Radiological Interpretation: Interpreted by me, Reviewed by me - Risk of complications The pt has a high risk of morbidity or mortality based on: Decision regarding hospitilization or escalation of hosp level of care - Departure Departure Disposition: Observation Clinical Impression: RSV (respiratory syncytial virus infection) Qualifiers: RSV infection type: pneumonia Qualified Code(s): J12.1 - Respiratory syncytial virus pneumonia Pneumonia Qualifiers: Pneumonia type: due to unspecified organism Laterality: right Lung location: lower lobe of lung Qualified Code(s): J18.9 - Pneumonia, unspecified organism Condition: Stable Critical Care Time: No Referrals: NICOLE JONES MD [Primary Care Provider] - Follow up/PCP as directed
[2024-09-09 16:01] LABS: INFLUENZA A NEGATIVE (NEGATIVE); INFLUENZA B NEGATIVE (NEGATIVE); SARS-CoV-2 Xpert Express NEGATIVE (NEGATIVE)
[2024-09-09] MEDS ORDERED: DUONEB 0.5-3 MG/3 ml Neb IH ONE (16:01)
[2024-09-09] MEDS: DUONEB 0.5-3 MG/3 ml Neb IH ONE (16:04)
[2024-09-09 16:05] LABS: RESPIRATORY SYNCTIAL VIRUS POSITIVE (NEGATIVE)
[2024-09-09 16:07] LABS: ALBUMIN 4.1 g/dL (3.5-5.0); ANION GAP 17.2 MEQ/L (5-15); BILIRUBIN,TOTAL 0.7 mg/dL (0.2-1.3); Calcium 9.1 mg/dL (8.4-10.2); Creatinine 1 2.1 mg/dL (0.66-1.25); EST GLOMERULAR FILTRATION RATE 30.7 ML/MIN; Potassium 4.3 mmol/L (3.5-5.1); Total Protein 6.6 g/dL (6.3-8.2)
[2024-09-09 16:24] LABS: PROCALCITONIN 0.117 ng/mL (0.030-0.080)
[2024-09-09 16:30] LABS: Group A Strep NOT DETECTED (NEGATIVE)
[2024-09-09] MEDS ORDERED: ROCEPHIN 1 GM / 100 ML NaCl 1 GM/100 ML IVPB IV ONE (17:13)
[2024-09-09] MEDS ORDERED: Sodium Chloride 0.9% 1000 ML 1,000 ML ONE (17:13)
[2024-09-09] MEDS: Sodium Chloride 0.9% 1000 ML 1,000 ML IV SCH ×2 (17:14→19:40)
[2024-09-09] MEDS: ROCEPHIN 1 GM / 100 ML NaCl 1 GM/100 ML IVPB IV ONE (17:15)
[2024-09-09] MEDS ORDERED: TYLENOL 325 MG PO PRN (17:41)
[2024-09-09] MEDS ORDERED: Zofran 4 MG/2 ML VIAL IV PRN (17:41)
[2024-09-09] MEDS ORDERED: DUONEB 0.5-3 MG/3 ml Neb IH PRN (17:44)
[2024-09-09] MEDS ORDERED: NON-FORMULARY ITEM (Magnesium [Magnesium] 200 MG Tablet) PO SCH (17:45)
--- NOTE | 2024-09-09 17:45 | PCM.HP ---
History of Present Illness - Chief Complaint Chief Complaint: RSV Date: 09/09/24 History of Present Illness: is a 84 year old male with a history of CAD and atrial fibrillation status post-ablation with a pacemaker. He presented to ER today via private vehicle with a four-day history of cough, chills, and body aches. He describes his cough as productive and reports feeling fatigued and run down but denies chest pain, shortness of breath, vomiting. However, he does endorse wheezing. He states that he experienced a severe episode of diarrhea three to four days ago, followed by intermittent throat pain, and has had ongoing loose stools for over a month. On examination, he is alert and oriented, with expiratory wheezes in the upper lobes, a reddened throat, and mild shortness of breath. He also reports frequent nighttime coughing. He is scheduled for a cardiology consultation on September 12, 2024, to discuss coronary artery stenting. - Review of Systems Constitutional: No Fever, No Chills Eyes: No Symptoms Ears, Nose, & Throat: No Symptoms Respiratory: Short Of Breath, No Cough Cardiac: No Chest Pain, No Edema, No Syncope Abdominal/Gastrointestinal: Diarrhea, No Abdominal Pain, No Nausea, No Vomiting Genitourinary Symptoms: No Dysuria Musculoskeletal: No Back Pain, No Neck Pain Skin: No Rash Neurological: No Dizziness, No Focal Weakness, No Sensory Changes Psychological: No Symptoms Endocrine: No Symptoms Hematologic/Lymphatic: No Symptoms Immunological/Allergic: No Symptoms Medications & Allergies Home Medications: Home Medication List Amlodipine/Atorvastatin [Amlodipine-Atorvast 2.5-10 mg] 1 each PO DAILY 09/27/18 [History Confirmed 09/09/24] Glipizide 5 mg [Glucotrol 5 MG] 5 mg PO BID 09/27/18 [History Confirmed 09/09/24] Lansoprazole [Prevacid] 30 mg PO DAILY 09/27/18 [History Confirmed 09/09/24] Losartan Potassium 50 mg [Cozaar 50 MG] 50 mg PO BID 09/27/18 [History Confirmed 09/09/24] Metformin HCl 500 mg [Glucophage 500 MG] 500 mg PO BID 09/27/18 [History Confirmed 09/09/24] Propranolol HCl [Inderal Xl] 80 mg PO DAILY 09/27/18 [History Confirmed 09/09/24] Rosuvastatin Calcium [Crestor] 20 mg PO DAILY 09/27/18 [History Confirmed 09/09/24] Tamsulosin HCl 0.4 mg [Flomax 0.4 MG] 0.4 mg PO DAILY 09/27/18 [History Confirmed 09/09/24] Cranberry 500 mg PO DAILY 04/28/22 [History Confirmed 09/09/24] Betamethasone Valerate 1 applic TP DAILY PRN PRN 07/19/24 [History Confirmed 09/09/24] Empagliflozin [Jardiance] 1 tab PO DAILY 07/19/24 [History Confirmed 09/09/24] Furosemide 20 mg [Lasix 20 mg] 20 mg PO DAILY 07/19/24 [History Confirmed 09/09/24] Magnesium 200 mg PO UD 07/19/24 [History Confirmed 09/09/24] Multivitamin 1 each PO DAILY 07/19/24 [History Confirmed 09/09/24] Nitroglycerin 0.4 mg SL . Q 5MIN X 3 PRN 07/19/24 [History Confirmed 09/09/24] Allergies/Adverse Reactions: Allergies Allergy/AdvReac Type Severity Reaction Status Date / Time prednisone AdvReac Verified 09/09/24 15:09 - Past Medical History Past Medical History: Yes Neurological History: No Pertinent History ENT History: No Pertinent History Cardiac History: High Cholesterol, Hypertension, Other Respiratory History: No Pertinent History Endocrine Medical History: Diabetes Type II Musculoskelatal History: No Pertinent History GI Medical History: GERD History: Renal Disease, Other Pyscho-Social History: No Pertinent History Male Reproductive Disorders: Prostate Problems - Past Surgical History Past Surgical History: Yes Neuro Surgical History: No Pertinent History Cardiac History: CABG Respiratory Surgery: No Pertinent History GI Surgical History: Cholecystectomy Genitourinary Surgical Hx: No Pertinent History Musculskeletal Surgical Hx: No Pertinent History Male Surgical History: No Pertinent History Other Surgical History: 4 bypass open heart in 1999, CAROTID surgery/cleaning, Significant Family History: no pertinent family hx - Social History Smoking Status: Former smoker Exposure to second hand smoke: No Alcohol: None Drug Use: none - Social Determinants of Health Will the patient participate in the screening: Yes Do you worry about a steady place to live?: No Do you have any problems with any of the following?: No known problems In the past 12 months,have you had to go without utilities?: No Have you or anyone in your house had to go without enough: No Transportation Issues: No Has anyone in your support network made you feel unsafe?: No - Physical Exam Vital Signs: Vital Signs - 24 hr Pulse Resp BP BP Pulse Ox 09/09/24 17:09 94 L 09/09/24 17:00 62 19 116/59 116/59 90 L 09/09/24 16:15 61 15 115/68 99 09/09/24 16:09 66 12 95 09/09/24 16:00 61 15 115/60 99 09/09/24 15:30 66 14 102/55 92 L 09/09/24 15:02 61 15 100/53 94 L 09/09/24 14:43 63 14 100/53 95 General Appearance: no apparent distress, alert, obese Neurologic Exam: alert, oriented x 3, cooperative, normal mood/affect, nml cerebellar function, nml station & gait, sensation nml, No motor deficits Eye Exam: PERRL/EOMI, eyes nml inspection Ears, Nose, Throat Exam: normal ENT inspection, TMs normal, pharynx normal, moist mucous membranes Neck Exam: normal inspection, non-tender, supple, full range of motion Respiratory Exam: wheezing, No respiratory distress Cardiovascular Exam: regular rate/rhythm, normal heart sounds, normal peripheral pulses Gastrointestinal/Abdomen Exam: soft, normal bowel sounds, No tenderness, No mass Back Exam: normal inspection, normal range of motion, No CVA tenderness, No vertebral tenderness Extremity Exam: normal inspection, normal range of motion, pelvis stable Skin Exam: normal color, warm, dry, No rash Lymphatic Exam: No adenopathy Results - Labs Lab/Micro Results: Lab Results-Last 24 Hours 09/09/24 09/09/24 09/09/24 Range/Units 15:25 15:25 15: WBC 6.7 (4.23-9.07) x10^3/uL RBC 4.83 (4.63-6.08) x10^6/uL Hgb 14.1 (13.7-17.5) g/dL Hct 43.4 (40.1-51.0) % MCV 89.9 (79.0-92.2) fL MCH 29.2 (25.7-32.2) pg MCHC 32.5 (32.3-36.5) g/dL RDW 14.6 H (11.6-14.4) % Plt Count 180 (163-337) x10^3/uL MPV 11.1 (9.4-12.4) fL Gran % 66.7 (34.0-67.9) % Immature Gran % (Auto) 0.3 (0.001-0.429) % Nucleat RBC Rel Count 0.0 (0.00-0.2) % Eos # (Auto) 0.35 (0.04-0.54) x10^3/uL Immature Gran # (Auto) 0.02 (0.001-0.031) x10^3u/L Absolute Lymphs (auto) 0.90 L (1.32-3.57) x10^3/uL Absolute Monos (auto) 0.91 H (0.30-0.82) x10^3/uL Absolute Nucleated RBC 0.00 (0.00-0.012) x10^3u/L Lymphocytes % 13.5 L (21.8-53.1) % Monocytes % 13.6 H (5.3-12.2) % Eosinophils % 5.2 (0.8-7.0) % Basophils % 0.7 (0.2-1.2) % Absolute Granulocytes 4.46 (1.78-5.38) x10^3/uL Basophils # 0.05 (0.01-0.08) x10^3/uL Sodium 143 (135-145) mmol/L Potassium 4.3 (3.5-5.1) mmol/L Chloride 103 (98-107) mmol/L Carbon Dioxide 27 (22-30) mmol/L Anion Gap 17.2 H (5-15) MEQ/L BUN 35 H (9-20) mg/dL Creatinine 2.10 H (0.66-1.25) mg/dL Estimated GFR 30.7 ML/MIN Glucose 107 H (74-106) mg/dL Lactic Acid (0.4-2.0) Calcium 9.1 (8.4-10.2) mg/dL Total Bilirubin 0.70 (0.2-1.3) mg/dL AST 30 (17-59) U/L ALT 24 (0-50) U/L Alkaline Phosphatase 65 (38-126) U/L Troponin I (0.000-0.033) ng/mL Serum Total Protein 6.6 (6.3-8.2) g/dL Albumin 4.1 (3.5-5.0) g/dL Procalcitonin 0.117 H (0.030-0.080) ng/mL Influenza Type A Ag NEGATIVE (NEGATIVE) Influenza Type B Ag NEGATIVE (NEGATIVE) RSV (PCR) POSITIVE A (NEGATIVE) SARS-CoV-2 (PCR) NEGATIVE (NEGATIVE) Group A Strep Antibody NOT DETECTED (NEGATIVE) 09/09/24 09/09/24 Range/Units 15:25 16:15 WBC (4.23-9.07) x10^3/uL RBC (4.63-6.08) x10^6/uL Hgb (13.7-17.5) g/dL Hct (40.1-51.0) % MCV (79.0-92.2) fL MCH (25.7-32.2) pg MCHC (32.3-36.5) g/dL RDW (11.6-14.4) % Plt Count (163-337) x10^3/uL MPV (9.4-12.4) fL Gran % (34.0-67.9) % Immature Gran % (Auto) (0.001-0.429) % Nucleat RBC Rel Count (0.00-0.2) % Eos # (Auto) (0.04-0.54) x10^3/uL Immature Gran # (Auto) (0.001-0.031) x10^3u/L Absolute Lymphs (auto) (1.32-3.57) x10^3/uL Absolute Monos (auto) (0.30-0.82) x10^3/uL Absolute Nucleated RBC (0.00-0.012) x10^3u/L Lymphocytes % (21.8-53.1) % Monocytes % (5.3-12.2) % Eosinophils % (0.8-7.0) % Basophils % (0.2-1.2) % Absolute Granulocytes (1.78-5.38) x10^3/uL Basophils # (0.01-0.08) x10^3/uL Sodium (135-145) mmol/L Potassium (3.5-5.1) mmol/L Chloride (98-107) mmol/L Carbon Dioxide (22-30) mmol/L Anion Gap (5-15) MEQ/L BUN (9-20) mg/dL Creatinine (0.66-1.25) mg/dL Estimated GFR ML/MIN Glucose (74-106) mg/dL Lactic Acid 1.3 (0.4-2.0) Calcium (8.4-10.2) mg/dL Total Bilirubin (0.2-1.3) mg/dL AST (17-59) U/L ALT (0-50) U/L Alkaline Phosphatase (38-126) U/L Troponin I < 0.012 (0.000-0.033) ng/mL Serum Total Protein (6.3-8.2) g/dL Albumin (3.5-5.0) g/dL Procalcitonin (0.030-0.080) ng/mL Influenza Type A Ag (NEGATIVE) Influenza Type B Ag (NEGATIVE) RSV (PCR) (NEGATIVE) SARS-CoV-2 (PCR) (NEGATIVE) Group A Strep Antibody (NEGATIVE) - Radiology Impressions Radiology Exams & Impressions: Radiology Procedures Category Date Time Status CHEST 2 VIEWS (PA AND LAT) Stat Exams 09/09/24 16:35 Taken - Other Procedures and Tests Respiratory Therapy 09/09/24 16:09 Respiratory Therapy Assessment DAILY Assessment/Plan (1) Pneumonia Current Visit: Yes Status: Acute Qualifiers: Pneumonia type: due to unspecified organism Laterality: right Lung location: lower lobe of lung Qualified Code(s): J18.9 - Pneumonia, unspecified organism Assessment & Plan: - CXR oending - CBC, CMP reviewed - Ceftriaxone, azithromycin, xoponex - RA 94% - Tele - Procal elevated Code(s): J18.9 - PNEUMONIA, UNSPECIFIED ORGANISM (2) RSV (respiratory syncytial virus infection) Current Visit: Yes Status: Acute Qualifiers: RSV infection type: pneumonia Qualified Code(s): J12.1 - Respiratory syncytial virus pneumonia Assessment & Plan: - supportive care - IVF - O2 at room air Code(s): B33.8 - OTHER SPECIFIED VIRAL DISEASES (3) Chronic renal disease Current Visit: No Status: Chronic Assessment & Plan: - Creat 2.10- baseline 1.79 - IVF - acute on chronic - Held oral diabetic meds, and lasix Code(s): N18.9 - CHRONIC KIDNEY DISEASE, UNSPECIFIED (4) Obesity (BMI 30.0-34.9) Current Visit: Yes Status: Chronic Assessment & Plan: - Advised ADA diet, low sodium, and exercise control per cardiology recs Code(s): E66.811 - OBESITY, CLASS 1 (5) HTN (hypertension) Current Visit: Yes Status: Acute Assessment & Plan: - BP stable - Continue home meds Code(s): I10 - ESSENTIAL (PRIMARY) HYPERTENSION (6) BPH (benign prostatic hyperplasia) Current Visit: Yes Status: Chronic Assessment & Plan: - Continue flomax Code(s): N40.0 - BENIGN PROSTATIC HYPERPLASIA WITHOUT LOWER URINRY TRACT SYMP (7) CAD (coronary artery disease) Current Visit: Yes Status: Chronic Assessment & Plan: - With recent pacemaker placement - Continue home meds Code(s): I25.10 - ATHSCL HEART DISEASE OF [place] CORONARY ARTERY W/O ANG PCTRS (8) Type II diabetes mellitus Current Visit: Yes Status: Chronic Assessment & Plan: - Hold oral meds d/t DIGNA - Accuchecks ac/hs - Humalog s/s - Hgb A1C- pending VTE: SCD's PPI: prevacid Next of KIN: D/C plan: tomorrow Code status: Full Telemedicine Encounter - Telemedicine Encounter Telemedicine Encounter: "The entirety of this encounter was performed via Telemedicine" This visit was performed using real-time audio and video connection between my location and thepatients locationwith the assistance of a surrogateat the patients location. Written or verbal consent was obtained from the patient/guardian to perform this visit [facility] technology. Any patient questions regarding the telemedicine interaction were answered.
[2024-09-09] MEDS ORDERED: HUMALOG SQ PRN (17:55)
--- NOTE | 2024-09-09 19:20 | XRAY ---
Indication: Wheezing. Cough. Comparison: April 04, 2024 PA/lateral chest again hyperinflated with new mild right lower lobe infiltrate/atelectasis. Stable incidental left base calcified granuloma. Heart not enlarged again with CABG and left pacemaker. Bony thorax intact again with osteopenia.
[2024-09-09] MEDS: Cozaar 50 MG PO SCH (21:56)
[2024-09-10 02:38] LABS: Hematocrit 41.8 % (40.1-51.0); Hemoglobin 13.5 g/dL (13.7-17.5); Mean Cell Volume 90.7 fL (79.0-92.2); Mean Corpuscular Hemoglobin 29.3 pg (25.7-32.2); Mean Corpuscular Hgb Concent. 32.3 g/dL (32.3-36.5); Mean Platelet Volume 10.8 fL (9.4-12.4); Platelet Count 167 x10^3/uL (163-337); Red Blood Count 4.61 x10^6/uL (4.63-6.08); Red Cell Distribution Width 14.6 % (11.6-14.4); White Blood Count 8.7 x10^3/uL (4.23-9.07)
[2024-09-10 02:51] LABS: ALBUMIN 3.7 g/dL (3.5-5.0); BILIRUBIN,TOTAL 0.7 mg/dL (0.2-1.3); Calcium 8.8 mg/dL (8.4-10.2); Creatinine 1 1.89 mg/dL (0.66-1.25); EST GLOMERULAR FILTRATION RATE 34.8 ML/MIN; Total Protein 6.2 g/dL (6.3-8.2)
--- NOTE | 2024-09-10 05:12 | PCM.NOTE ---
Date and Time: 09/10/24 0508 Subjective Assessment: HPI: Mr. Cunningham is an 84-year-old male with a past medical history of atrial fibrillation (s/p ablation and pacemaker), hyperlipidemia, hypertension, type II diabetes mellitus, coronary artery disease (s/p CABG), GERD, chronic kidney disease, obesity, and benign prostatic hyperplasia. He presented to the ED on September 10, 2024, with a four-day history of productive cough, body aches, sore throat, and generalized weakness. He also reported ongoing loose stools for the past month. Upon arrival, his vitals were stable. Chest X-ray showed a right lower lobe infiltrate, and an EKG revealed a paced rhythm with non-specific ST changes, unchanged from a prior EKG on August 22, 2024. Labs were significant for an elevated anion gap, elevated procalcitonin, RSV positivity, and an elevated creatinine at 2.10 (baseline 1.7-1.8). He was diagnosed with pneumonia and RSV and received IV fluids and Rocephin in the ED. He was admitted for further management with ceftriaxone, azithromycin, and supportive care. Given his acute kidney injury, oral diabetic medications and Lasix were held, and fluid resuscitation was initiated. Notably, he has an upcoming cardiology consultation on September 12, 2024, to discuss coronary artery stenting. Objective Data Vital Signs: Vital Signs - 24 hr Temp Pulse Resp BP BP Pulse Ox 09/10/24 04:00 97.9 F 67 18 110/72 94 L 09/09/24 23:42 98.2 F 62 18 120/64 94 L 09/09/24 19:59 98.0 F 62 20 126/57 97 09/09/24 19:55 65 16 93 L 09/09/24 19:40 98.0 F 62 20 126/57 97 09/09/24 17:09 94 L 09/09/24 17:00 62 19 116/59 116/59 90 L 09/09/24 16:15 61 15 115/68 99 09/09/24 16:09 66 12 95 09/09/24 16:00 61 15 115/60 99 09/09/24 15:30 66 14 102/55 92 L 09/09/24 15:02 61 15 100/53 94 L 09/09/24 14:43 63 14 100/53 95 Pain Assessment - Last Documented Pain Intensity 0 Intake and Output: Intake & Output 09/07/24 09/08/24 09/09/24 09/10/24 11:59 11:59 11:59 11:59 Intake Total 891 Balance 891 Weight 94.7 kg Lab Results: Lab Results-Last 24 Hours 09/09/24 09/09/24 09/09/24 Range/Units 15:25 15:25 15:25 WBC 6.7 (4.23-9.07) x10^3/uL RBC 4.83 (4.63-6.08) x10^6/uL Hgb 14.1 (13.7-17.5) g/dL Hct 43.4 (40.1-51.0) % MCV 89.9 (79.0-92.2) fL MCH 29.2 (25.7-32.2) pg MCHC 32.5 (32.3-36.5) g/dL RDW 14.6 H (11.6-14.4) % Plt Count 180 (163-337) x10^3/uL MPV 11.1 (9.4-12.4) fL Gran % 66.7 (34.0-67.9) % Immature Gran % (Auto) 0.3 (0.001-0.429) % Nucleat RBC Rel Count 0.0 (0.00-0.2) % Eos # (Auto) 0.35 (0.04-0.54) x10^3/uL Immature Gran # (Auto) 0.02 (0.001-0.031) x10^3u/L Absolute Lymphs (auto) 0.90 L (1.32-3.57) x10^3/uL Absolute Monos (auto) 0.91 H (0.30-0.82) x10^3/uL Absolute Nucleated RBC 0.00 (0.00-0.012) x10^3u/L Lymphocytes % 13.5 L (21.8-53.1) % Monocytes % 13.6 H (5.3-12.2) % Eosinophils % 5.2 (0.8-7.0) % Basophils % 0.7 (0.2-1.2) % Absolute Granulocytes 4.46 (1.78-5.38) x10^3/uL Basophils # 0.05 (0.01-0.08) x10^3/uL Sodium 143 (135-145) mmol/L Potassium 4.3 (3.5-5.1) mmol/L Chloride 103 (98-107) mmol/L Carbon Dioxide 27 (22-30) mmol/L Anion Gap 17.2 H (5-15) MEQ/L BUN 35 H (9-20) mg/dL Creatinine 2.10 H (0.66-1.25) mg/dL Estimated GFR 30.7 ML/MIN Glucose 107 H (74-106) mg/dL POC Glucometer (74 to 106) mg/dL Hemoglobin A1c (4.5-6.0) % Lactic Acid (0.4-2.0) Calcium 9.1 (8.4-10.2) mg/dL Total Bilirubin 0.70 (0.2-1.3) mg/dL AST 30 (17-59) U/L ALT 24 (0-50) U/L Alkaline Phosphatase 65 (38-126) U/L Troponin I (0.000-0.033) ng/mL Serum Total Protein 6.6 (6.3-8.2) g/dL Albumin 4.1 (3.5-5.0) g/dL Procalcitonin 0.117 H (0.030-0.080) ng/mL Influenza Type A Ag NEGATIVE (NEGATIVE) Influenza Type B Ag NEGATIVE (NEGATIVE) RSV (PCR) POSITIVE A (NEGATIVE) SARS-CoV-2 (PCR) NEGATIVE (NEGATIVE) Group A Strep Antibody NOT DETECTED (NEGATIVE) 09/09/24 09/09/24 09/09/24 Range/Units 15:25 16:15 20:12 WBC (4.23-9.07) x10^3/uL RBC (4.63-6.08) x10^6/uL Hgb (13.7-17.5) g/dL Hct (40.1-51.0) % MCV (79.0-92.2) fL MCH (25.7-32.2) pg MCHC (32.3-36.5) g/dL RDW (11.6-14.4) % Plt Count (163-337) x10^3/uL MPV (9.4-12.4) fL Gran % (34.0-67.9) % Immature Gran % (Auto) (0.001-0.429) % Nucleat RBC Rel Count (0.00-0.2) % Eos # (Auto) (0.04-0.54) x10^3/uL Immature Gran # (Auto) (0.001-0.031) x10^3u/L Absolute Lymphs (auto) (1.32-3.57) x10^3/uL Absolute Monos (auto) (0.30-0.82) x10^3/uL Absolute Nucleated RBC (0.00-0.012) x10^3u/L Lymphocytes % (21.8-53.1) % Monocytes % (5.3-12.2) % Eosinophils % (0.8-7.0) % Basophils % (0.2-1.2) % Absolute Granulocytes (1.78-5.38) x10^3/uL Basophils # (0.01-0.08) x10^3/uL Sodium (135-145) mmol/L Potassium (3.5-5.1) mmol/L Chloride (98-107) mmol/L Carbon Dioxide (22-30) mmol/L Anion Gap (5-15) MEQ/L BUN (9-20) mg/dL Creatinine (0.66-1.25) mg/dL Estimated GFR ML/MIN Glucose (74-106) mg/dL POC Glucometer (74 to 106) mg/dL Hemoglobin A1c (4.5-6.0) % Lactic Acid 1.3 (0.4-2.0) Calcium (8.4-10.2) mg/dL Total Bilirubin (0.2-1.3) mg/dL AST (17-59) U/L ALT (0-50) U/L Alkaline Phosphatase (38-126) U/L Troponin I < 0.012 < 0.012 (0.000-0.033) ng/mL Serum Total Protein (6.3-8.2) g/dL Albumin (3.5-5.0) g/dL Procalcitonin (0.030-0.080) ng/mL Influenza Type A Ag (NEGATIVE) Influenza Type B Ag (NEGATIVE) RSV (PCR) (NEGATIVE) SARS-CoV-2 (PCR) (NEGATIVE) Group A Strep Antibody (NEGATIVE) 09/09/24 09/10/24 09/10/24 Range/Units 20:47 02:36 02:36 WBC 8.7 (4.23-9.07) x10^3/uL RBC 4.61 L (4.63-6.08) x10^6/uL Hgb 13.5 L (13.7-17.5) g/dL Hct 41.8 (40.1-51.0) % MCV 90.7 (79.0-92.2) fL MCH 29.3 (25.7-32.2) pg MCHC 32.3 (32.3-36.5) g/dL RDW 14.6 H (11.6-14.4) % Plt Count 167 (163-337) x10^3/uL MPV 10.8 (9.4-12.4) fL Gran % (34.0-67.9) % Immature Gran % (Auto) (0.001-0.429) % Nucleat RBC Rel Count (0.00-0.2) % Eos # (Auto) (0.04-0.54) x10^3/uL Immature Gran # (Auto) (0.001-0.031) x10^3u/L Absolute Lymphs (auto) (1.32-3.57) x10^3/uL Absolute Monos (auto) (0.30-0.82) x10^3/uL Absolute Nucleated RBC (0.00-0.012) x10^3u/L Lymphocytes % (21.8-53.1) % Monocytes % (5.3-12.2) % Eosinophils % (0.8-7.0) % Basophils % (0.2-1.2) % Absolute Granulocytes (1.78-5.38) x10^3/uL Basophils # (0.01-0.08) x10^3/uL Sodium (135-145) mmol/L Potassium (3.5-5.1) mmol/L Chloride (98-107) mmol/L Carbon Dioxide (22-30) mmol/L Anion Gap (5-15) MEQ/L BUN (9-20) mg/dL Creatinine (0.66-1.25) mg/dL Estimated GFR ML/MIN Glucose (74-106) mg/dL POC Glucometer 128 H (74 to 106) mg/dL Hemoglobin A1c (4.5-6.0) % Lactic Acid (0.4-2.0) Calcium (8.4-10.2) mg/dL Total Bilirubin (0.2-1.3) mg/dL AST (17-59) U/L ALT (0-50) U/L Alkaline Phosphatase (38-126) U/L Troponin I < 0.012 (0.000-0.033) ng/mL Serum Total Protein (6.3-8.2) g/dL Albumin (3.5-5.0) g/dL Procalcitonin (0.030-0.080) ng/mL Influenza Type A Ag (NEGATIVE) Influenza Type B Ag (NEGATIVE) RSV (PCR) (NEGATIVE) SARS-CoV-2 (PCR) (NEGATIVE) Group A Strep Antibody (NEGATIVE) 09/10/24 09/10/24 Range/Units 02:36 02:36 WBC (4.23-9.07) x10^3/uL RBC (4.63-6.08) x10^6/uL Hgb (13.7-17.5) g/dL Hct (40.1-51.0) % MCV (79.0-92.2) fL MCH (25.7-32.2) pg MCHC (32.3-36.5) g/dL RDW (11.6-14.4) % Plt Count (163-337) x10^3/uL MPV (9.4-12.4) fL Gran % (34.0-67.9) % Immature Gran % (Auto) (0.001-0.429) % Nucleat RBC Rel Count (0.00-0.2) % Eos # (Auto) (0.04-0.54) x10^3/uL Immature Gran # (Auto) (0.001-0.031) x10^3u/L Absolute Lymphs (auto) (1.32-3.57) x10^3/uL Absolute Monos (auto) (0.30-0.82) x10^3/uL Absolute Nucleated RBC (0.00-0.012) x10^3u/L Lymphocytes % (21.8-53.1) % Monocytes % (5.3-12.2) % Eosinophils % (0.8-7.0) % Basophils % (0.2-1.2) % Absolute Granulocytes (1.78-5.38) x10^3/uL Basophils # (0.01-0.08) x10^3/uL Sodium 142 (135-145) mmol/L Potassium 4.0 (3.5-5.1) mmol/L Chloride 106 (98-107) mmol/L Carbon Dioxide 27 (22-30) mmol/L Anion Gap 13.0 (5-15) MEQ/L BUN 32 H (9-20) mg/dL Creatinine 1.89 H (0.66-1.25) mg/dL Estimated GFR 34.8 ML/MIN Glucose 104 (74-106) mg/dL POC Glucometer (74 to 106) mg/dL Hemoglobin A1c 6.77 H (4.5-6.0) % Lactic Acid (0.4-2.0) Calcium 8.8 (8.4-10.2) mg/dL Total Bilirubin 0.70 (0.2-1.3) mg/dL AST 27 (17-59) U/L ALT 22 (0-50) U/L Alkaline Phosphatase 71 (38-126) U/L Troponin I (0.000-0.033) ng/mL Serum Total Protein 6.2 L (6.3-8.2) g/dL Albumin 3.7 (3.5-5.0) g/dL Procalcitonin (0.030-0.080) ng/mL Influenza Type A Ag (NEGATIVE) Influenza Type B Ag (NEGATIVE) RSV (PCR) (NEGATIVE) SARS-CoV-2 (PCR) (NEGATIVE) Group A Strep Antibody (NEGATIVE) Radiology Exams: Radiology Procedures Category Date Time Status CHEST 2 VIEWS (PA AND LAT) Stat Exams 09/09/24 16:35 Completed Assessment/Plan (1) Pneumonia Current Visit: Yes Status: Acute Qualifiers: Pneumonia type: due to unspecified organism Laterality: right Lung location: lower lobe of lung Qualified Code(s): J18.9 - Pneumonia, unspecified organism Assessment & Plan: - CXR reviewed showing RLL infiltrate - CBC, CMP reviewed -WBC WNL at 8.7 -LA WNL at 1.3 -Continue ceftriaxone, azithromycin, xoponex - Supplemental oxygen to maintain spo2 goal of > 92% - currently on RA - Tele - Procal reviewed and elevated Code(s): J18.9 - PNEUMONIA, UNSPECIFIED ORGANISM (2) RSV (respiratory syncytial virus infection) Current Visit: Yes Status: Acute Qualifiers: RSV infection type: pneumonia Qualified Code(s): J12.1 - Respiratory syncytial virus pneumonia Assessment & Plan: - supportive care - IVF - Supplemental oxygen to maintain spo2 goal of > 92% - currently on RA Code(s): B33.8 - OTHER SPECIFIED VIRAL DISEASES (3) Afib Current Visit: Yes Status: Acute Assessment & Plan: -S/P ablation - pacemaker Code(s): I48.91 - UNSPECIFIED ATRIAL FIBRILLATION (4) HTN (hypertension) Current Visit: Yes Status: Acute Assessment & Plan: - BP stable - Continue home meds Code(s): I10 - ESSENTIAL (PRIMARY) HYPERTENSION (5) BPH (benign prostatic hyperplasia) Current Visit: Yes Status: Chronic Assessment & Plan: - Continue flomax Code(s): N40.0 - BENIGN PROSTATIC HYPERPLASIA WITHOUT LOWER URINRY TRACT SYMP (6) CAD (coronary artery disease) Current Visit: Yes Status: Chronic Assessment & Plan: - With recent pacemaker placement -Appt this week to discuss stents with cardiology - Continue home meds Code(s): I25.10 - ATHSCL HEART DISEASE OF [place] CORONARY ARTERY W/O ANG PCTRS (7) Acute on chronic renal failure Current Visit: Yes Status: Acute Assessment & Plan: - Creat reviewed at 1.89 < 2.10 baseline around 1.7-1.8 - IVF - Hold oral diabetic meds, and lasix -Monitor renal/lytes Code(s): N17.9 - ACUTE KIDNEY FAILURE, UNSPECIFIED; N18.9 - CHRONIC KIDNEY DISEASE, UNSPECIFIED (8) Obesity (BMI 30.0-34.9) Current Visit: Yes Status: Chronic Assessment & Plan: - Advised ADA diet, low sodium, and exercise control per cardiology recs Code(s): E66.811 - OBESITY, CLASS 1 (9) Type II diabetes mellitus Current Visit: Yes Status: Chronic Assessment & Plan: - Hold oral meds d/t DIGNA - Accuchecks ac/hs - Humalog s/s - Hgb A1C- pending VTE: SCD's PPI: prevacid Next of KIN: D/C plan: tomorrow Code status: Full
[2024-09-10] MEDS ORDERED: MEDICATION INTERVENTION MC SCH ×3 (07:30→07:45)
[2024-09-10] MEDS ORDERED: BETAMETHASONE DIPROPIONATE TP PRN (07:35)
[2024-09-10] MEDS: Xopenex 1.25 MG/0.5 ML UD NEBULE IH PRN (07:36)
--- NOTE | 2024-09-10 09:47 | PCM.DS ---
Discharge Summary Date of Admission: 09/09/24 17:35 Date of Discharge: 09/10/24 Admitting Physician: ALLEGRA MAYERS MD Primary Care Provider: INCOLE JONES Allergies Allergies prednisone Adverse Reaction (Verified 09/09/24 15:09) Hospital Summary - Hospital Course Hospital Course: Mr. Cunningham is an 84-year-old male with a past medical history of atrial fibrillation (s/p ablation and pacemaker), hyperlipidemia, hypertension, type II diabetes mellitus, coronary artery disease (s/p CABG), GERD, chronic kidney disease, obesity, and benign prostatic hyperplasia. He presented to the ED on September 10, 2024, with a four-day history of productive cough, body aches, sore throat, and generalized weakness. He also reported ongoing loose stools for the past month. Upon arrival, his vitals were stable. Chest X-ray showed a right lower lobe infiltrate, and an EKG revealed a paced rhythm with non-specific ST changes, unchanged from a prior EKG on August 22, 2024. Labs were significant for an elevated anion gap, elevated procalcitonin, RSV positivity, and an elevated creatinine at 2.10 (baseline 1.7-1.8). He was diagnosed with pneumonia and RSV and received IV fluids and Rocephin in the ED. He was admitted for further management with ceftriaxone, azithromycin, and supportive care. Given his acute kidney injury, oral diabetic medications and Lasix were held, and fluid resuscitation was initiated. Notably, he has an upcoming cardiology consultation on September 12, 2024, to discuss coronary artery stenting. Dyspnea, cough and weakness improved. Patient remains on RA. Patient is requesting discharge as he is not able to sleep in the hospital bed comfortably. He reports he no longer follows with nephrology as OP and has Dr. Jones manage his CKD. His baseline average is around 1.7-1.8 and he is now near his baseline. Will discharge patient home with nebulizer machine and cefuroxime. He is to follow up with his PCP this week for recheck of his kidney function. Will continue to to hold Lasix until CMP is redrawn this week. Patient advised to check weight daily- if he notices a weight gain of > 3lb in one day or > 5lbs in one week - he is to reach out to his PCP for further management. Discharge Note New Diagnosis:RSV/pneumonia New Medications: Hold Lasix until follow up with PCP Cefuroxime/duonebs - new rx Follow Up: PCP -needs CMP rechecked this week to monitor kidney function - lasix is being held I spent 35 minutes [id number] with the patient on the day of discharge performing discharge exam, discussing hospital stay and discharge instructions with patient and caregivers, preparation of discharge records, prescriptions & referral forms and addressing any questions/concerns the patient had as doc umented above. - Vitals & Intake/Output Vital Signs: Vital Signs Temperature 98.1 F 09/10/24 07:56 Pulse Rate 71 09/10/24 07:56 Respiratory Rate 22 09/10/24 07:56 Blood Pressure 131/65 09/10/24 07:56 O2 Sat by Pulse Oximetry 93 L 09/10/24 07:56 Intake & Output: Intake & Output 09/07/24 09/08/24 09/09/24 09/10/24 11:59 11:59 11:59 11:59 Intake Total 891 Balance 891 Weight 94.7 kg - Lab Result Diagrams: 09/10/24 02:36 09/10/24 02:36 Lab Results-Last 24 Hrs: Lab Results-Last 24 Hours 09/09/24 09/09/24 09/09/24 Range/Units 15:25 15:25 15:25 WBC 6.7 (4.23-9.07) x10^3/uL RBC 4.83 (4.63-6.08) x10^6/uL Hgb 14.1 (13.7-17.5) g/dL Hct 43.4 (40.1-51.0) % MCV 89.9 (79.0-92.2) fL MCH 29.2 (25.7-32.2) pg MCHC 32.5 (32.3-36.5) g/dL RDW 14.6 H (11.6-14.4) % Plt Count 180 (163-337) x10^3/uL MPV 11.1 (9.4-12.4) fL Gran % 66.7 (34.0-67.9) % Immature Gran % (Auto) 0.3 (0.001-0.429) % Nucleat RBC Rel Count 0.0 (0.00-0.2) % Eos # (Auto) 0.35 (0.04-0.54) x10^3/uL Immature Gran # (Auto) 0.02 (0.001-0.031) x10^3u/L Absolute Lymphs (auto) 0.90 L (1.32-3.57) x10^3/uL Absolute Monos (auto) 0.91 H (0.30-0.82) x10^3/uL Absolute Nucleated RBC 0.00 (0.00-0.012) x10^3u/L Lymphocytes % 13.5 L (21.8-53.1) % Monocytes % 13.6 H (5.3-12.2) % Eosinophils % 5.2 (0.8-7.0) % Basophils % 0.7 (0.2-1.2) % Absolute Granulocytes 4.46 (1.78-5.38) x10^3/uL Basophils # 0.05 (0.01-0.08) x10^3/uL Sodium 143 (135-145) mmol/L Potassium 4.3 (3.5-5.1) mmol/L Chloride 103 (98-107) mmol/L Carbon Dioxide 27 (22-30) mmol/L Anion Gap 17.2 H (5-15) MEQ/L BUN 35 H (9-20) mg/dL Creatinine 2.10 H (0.66-1.25) mg/dL Estimated GFR 30.7 ML/MIN Glucose 107 H (74-106) mg/dL POC Glucometer (74 to 106) mg/dL Hemoglobin A1c (4.5-6.0) % Lactic Acid (0.4-2.0) Calcium 9.1 (8.4-10.2) mg/dL Total Bilirubin 0.70 (0.2-1.3) mg/dL AST 30 (17-59) U/L ALT 24 (0-50) U/L Alkaline Phosphatase 65 (38-126) U/L Troponin I (0.000-0.033) ng/mL Serum Total Protein 6.6 (6.3-8.2) g/dL Albumin 4.1 (3.5-5.0) g/dL Procalcitonin 0.117 H (0.030-0.080) ng/mL Influenza Type A Ag NEGATIVE (NEGATIVE) Influenza Type B Ag NEGATIVE (NEGATIVE) RSV (PCR) POSITIVE A (NEGATIVE) SARS-CoV-2 (PCR) NEGATIVE (NEGATIVE) Group A Strep Antibody NOT DETECTED (NEGATIVE) 09/09/24 09/09/24 09/09/24 Range/Units 15:25 16:15 20:12 WBC (4.23-9.07) x10^3/uL RBC (4.63-6.08) x10^6/uL Hgb (13.7-17.5) g/dL Hct (40.1-51.0) % MCV (79.0-92.2) fL MCH (25.7-32.2) pg MCHC (32.3-36.5) g/dL RDW (11.6-14.4) % Plt Count (163-337) x10^3/uL MPV (9.4-12.4) fL Gran % (34.0-67.9) % Immature Gran % (Auto) (0.001-0.429) % Nucleat RBC Rel Count (0.00-0.2) % Eos # (Auto) (0.04-0.54) x10^3/uL Immature Gran # (Auto) (0.001-0.031) x10^3u/L Absolute Lymphs (auto) (1.32-3.57) x10^3/uL Absolute Monos (auto) (0.30-0.82) x10^3/uL Absolute Nucleated RBC (0.00-0.012) x10^3u/L Lymphocytes % (21.8-53.1) % Monocytes % (5.3-12.2) % Eosinophils % (0.8-7.0) % Basophils % (0.2-1.2) % Absolute Granulocytes (1.78-5.38) x10^3/uL Basophils # (0.01-0.08) x10^3/uL Sodium (135-145) mmol/L Potassium (3.5-5.1) mmol/L Chloride (98-107) mmol/L Carbon Dioxide (22-30) mmol/L Anion Gap (5-15) MEQ/L BUN (9-20) mg/dL Creatinine (0.66-1.25) mg/dL Estimated GFR ML/MIN Glucose (74-106) mg/dL POC Glucometer (74 to 106) mg/dL Hemoglobin A1c (4.5-6.0) % Lactic Acid 1.3 (0.4-2.0) Calcium (8.4-10.2) mg/dL Total Bilirubin (0.2-1.3) mg/dL AST (17-59) U/L ALT (0-50) U/L Alkaline Phosphatase (38-126) U/L Troponin I < 0.012 < 0.012 (0.000-0.033) ng/mL Serum Total Protein (6.3-8.2) g/dL Albumin (3.5-5.0) g/dL Procalcitonin (0.030-0.080) ng/mL Influenza Type A Ag (NEGATIVE) Influenza Type B Ag (NEGATIVE) RSV (PCR) (NEGATIVE) SARS-CoV-2 (PCR) (NEGATIVE) Group A Strep Antibody (NEGATIVE) 09/09/24 09/10/24 09/10/24 Range/Units 20:47 02:36 02:36 WBC 8.7 (4.23-9.07) x10^3/uL RBC 4.61 L (4.63-6.08) x10^6/uL Hgb 13.5 L (13.7-17.5) g/dL Hct 41.8 (40.1-51.0) % MCV 90.7 (79.0-92.2) fL MCH 29.3 (25.7-32.2) pg MCHC 32.3 (32.3-36.5) g/dL RDW 14.6 H (11.6-14.4) % Plt Count 167 (163-337) x10^3/uL MPV 10.8 (9.4-12.4) fL Gran % (34.0-67.9) % Immature Gran % (Auto) (0.001-0.429) % Nucleat RBC Rel Count (0.00-0.2) % Eos # (Auto) (0.04-0.54) x10^3/uL Immature Gran # (Auto) (0.001-0.031) x10^3u/L Absolute Lymphs (auto) (1.32-3.57) x10^3/uL Absolute Monos (auto) (0.30-0.82) x10^3/uL Absolute Nucleated RBC (0.00-0.012) x10^3u/L Lymphocytes % (21.8-53.1) % Monocytes % (5.3-12.2) % Eosinophils % (0.8-7.0) % Basophils % (0.2-1.2) % Absolute Granulocytes (1.78-5.38) x10^3/uL Basophils # (0.01-0.08) x10^3/uL Sodium (135-145) mmol/L Potassium (3.5-5.1) mmol/L Chloride (98-107) mmol/L Carbon Dioxide (22-30) mmol/L Anion Gap (5-15) MEQ/L BUN (9-20) mg/dL Creatinine (0.66-1.25) mg/dL Estimated GFR ML/MIN Glucose (74-106) mg/dL POC Glucometer 128 H (74 to 106) mg/dL Hemoglobin A1c (4.5-6.0) % Lactic Acid (0.4-2.0) Calcium (8.4-10.2) mg/dL Total Bilirubin (0.2-1.3) mg/dL AST (17-59) U/L ALT (0-50) U/L Alkaline Phosphatase (38-126) U/L Troponin I < 0.012 (0.000-0.033) ng/mL Serum Total Protein (6.3-8.2) g/dL Albumin (3.5-5.0) g/dL Procalcitonin (0.030-0.080) ng/mL Influenza Type A Ag (NEGATIVE) Influenza Type B Ag (NEGATIVE) RSV (PCR) (NEGATIVE) SARS-CoV-2 (PCR) (NEGATIVE) Group A Strep Antibody (NEGATIVE) 09/10/24 09/10/24 09/10/24 Range/Units 02:36 02:36 07:12 WBC (4.23-9.07) x10^3/uL RBC (4.63-6.08) x10^6/uL Hgb (13.7-17.5) g/dL Hct (40.1-51.0) % MCV (79.0-92.2) fL MCH (25.7-32.2) pg MCHC (32.3-36.5) g/dL RDW (11.6-14.4) % Plt Count (163-337) x10^3/uL MPV (9.4-12.4) fL Gran % (34.0-67.9) % Immature Gran % (Auto) (0.001-0.429) % Nucleat RBC Rel Count (0.00-0.2) % Eos # (Auto) (0.04-0.54) x10^3/uL Immature Gran # (Auto) (0.001-0.031) x10^3u/L Absolute Lymphs (auto) (1.32-3.57) x10^3/uL Absolute Monos (auto) (0.30-0.82) x10^3/uL Absolute Nucleated RBC (0.00-0.012) x10^3u/L Lymphocytes % (21.8-53.1) % Monocytes % (5.3-12.2) % Eosinophils % (0.8-7.0) % Basophils % (0.2-1.2) % Absolute Granulocytes (1.78-5.38) x10^3/uL Basophils # (0.01-0.08) x10^3/uL Sodium 142 (135-145) mmol/L Potassium 4.0 (3.5-5.1) mmol/L Chloride 106 (98-107) mmol/L Carbon Dioxide 27 (22-30) mmol/L Anion Gap 13.0 (5-15) MEQ/L BUN 32 H (9-20) mg/dL Creatinine 1.89 H (0.66-1.25) mg/dL Estimated GFR 34.8 ML/MIN Glucose 104 (74-106) mg/dL POC Glucometer 91 (74 to 106) mg/dL Hemoglobin A1c 6.77 H (4.5-6.0) % Lactic Acid (0.4-2.0) Calcium 8.8 (8.4-10.2) mg/dL Total Bilirubin 0.70 (0.2-1.3) mg/dL AST 27 (17-59) U/L ALT 22 (0-50) U/L Alkaline Phosphatase 71 (38-126) U/L Troponin I (0.000-0.033) ng/mL Serum Total Protein 6.2 L (6.3-8.2) g/dL Albumin 3.7 (3.5-5.0) g/dL Procalcitonin (0.030-0.080) ng/mL Influenza Type A Ag (NEGATIVE) Influenza Type B Ag (NEGATIVE) RSV (PCR) (NEGATIVE) SARS-CoV-2 (PCR) (NEGATIVE) Group A Strep Antibody (NEGATIVE) Micro Results-Entire Visit: Accuchecks Date 09/10/24 Date 09/09/24 Time 20:45 - Radiology Exams Ordered Rad Exams-Entire Visit: Radiology Procedures Category Date Time Status CHEST 2 VIEWS (PA AND LAT) Stat Exams 09/09/24 16:35 Completed - Procedures and Test Procedures and Tests throughout Hospitalization: Therapy Orders & Screens 09/09/24 16:09 Respiratory Therapy Assessment DAILY Comment: 09/09/24 19:57 ST Screen per Nursing Assess ONCE Comment: Protocol Order Physician Instructions: Greater than [address] Admission Screening Reason For Exam: Triggered on Admission Diagnosis: RSV/PNE CVA/Dysphagia/Aphasia: No Cognitive Deficits: No Dehydration/Nutrition Deficit: No Reflux: No Oral-Motor Difficulties: No Pneumonia: Yes Assisted Resident: No Total Points: 5 Discharge Exam General Appearance: no apparent distress Neurologic Exam: alert, oriented x 3, cooperative Eye Exam: PERRL Ears, Nose, Throat Exam: normal ENT inspection Neck Exam: normal inspection Respiratory Exam: wheezing Cardiovascular Exam: regular rate/rhythm, normal heart sounds Gastrointestinal/Abdomen Exam: soft, normal bowel sounds Male Genitalia Exam: deferred Rectal Exam: deferred Back Exam: normal inspection Extremity Exam: normal inspection Skin Exam: normal color Final Diagnosis/Problem List - Final Discharge Diagnosis/Problem (1) Pneumonia Current Visit: Yes Status: Acute Assessment & Plan: - CXR reviewed showing RLL infiltrate - CBC, CMP reviewed -WBC WNL at 8.7 -LA WNL at 1.3 -IP treatment ceftriaxone, azithromycin, xoponex - will continue cefuroxime and dounebs OP - Supplemental oxygen to maintain spo2 goal of > 92% - currently on RA - Tele - Procal reviewed and elevated Code(s): J18.9 - PNEUMONIA, UNSPECIFIED ORGANISM (2) RSV (respiratory syncytial virus infection) Current Visit: Yes Status: Acute Qualifiers: RSV infection type: pneumonia Qualified Code(s): J12.1 - Respiratory syncytial virus pneumonia Assessment & Plan: - supportive care - IVF - Supplemental oxygen to maintain spo2 goal of > 92% - currently on RA Code(s): B33.8 - OTHER SPECIFIED VIRAL DISEASES (3) Afib Current Visit: Yes Status: Acute Assessment & Plan: -S/P ablation - pacemaker Code(s): I48.91 - UNSPECIFIED ATRIAL FIBRILLATION (4) HTN (hypertension) Current Visit: Yes Status: Acute Assessment & Plan: - BP stable - Continue home meds Code(s): I10 - ESSENTIAL (PRIMARY) HYPERTENSION (5) BPH (benign prostatic hyperplasia) Current Visit: Yes Status: Chronic Assessment & Plan: - Continue flomax Code(s): N40.0 - BENIGN PROSTATIC HYPERPLASIA WITHOUT LOWER URINRY TRACT SYMP (6) CAD (coronary artery disease) Current Visit: Yes Status: Chronic Assessment & Plan: - With recent pacemaker placement -Appt this week to discuss stents with cardiology - Continue home meds Code(s): I25.10 - ATHSCL HEART DISEASE OF [place] CORONARY ARTERY W/O ANG PCTRS (7) Acute on chronic renal failure Current Visit: Yes Status: Acute Assessment & Plan: - Creat reviewed at 1.89 < 2.10 baseline around 1.7-1.8 - IVF - Hold lasix as OP - recheck labs with PCP this week -Monitor renal/lytes Code(s): N17.9 - ACUTE KIDNEY FAILURE, UNSPECIFIED; N18.9 - CHRONIC KIDNEY DISEASE, UNSPECIFIED (8) Obesity (BMI 30.0-34.9) Current Visit: Yes Status: Chronic Assessment & Plan: - Advised ADA diet, low sodium, and exercise control per cardiology recs Code(s): E66.811 - OBESITY, CLASS 1 (9) Type II diabetes mellitus Current Visit: Yes Status: Chronic Assessment & Plan: - Hold oral meds d/t DIGNA - Accuchecks ac/hs - Humalog s/s - Hgb A1C- 6.77 Code(s): J18.9 - PNEUMONIA, UNSPECIFIED ORGANISM (2) RSV (respiratory syncytial virus infection) Current Visit: Yes Status: Acute Code(s): B33.8 - OTHER SPECIFIED VIRAL DISEASES (3) Afib Current Visit: Yes Status: Acute Code(s): I48.91 - UNSPECIFIED ATRIAL FIBRILLATION (4) HTN (hypertension) Current Visit: Yes Status: Acute Code(s): I10 - ESSENTIAL (PRIMARY) HYPERTENSION (5) BPH (benign prostatic hyperplasia) Current Visit: Yes Status: Chronic Code(s): N40.0 - BENIGN PROSTATIC HYPERPLASIA WITHOUT LOWER URINRY TRACT SYMP (6) CAD (coronary artery disease) Current Visit: Yes Status: Chronic Code(s): I25.10 - ATHSCL HEART DISEASE OF [place] CORONARY ARTERY W/O ANG PCTRS (7) Acute on chronic renal failure Current Visit: Yes Status: Acute Code(s): N17.9 - ACUTE KIDNEY FAILURE, UNSPECIFIED; N18.9 - CHRONIC KIDNEY DISEASE, UNSPECIFIED (8) Obesity (BMI 30.0-34.9) Current Visit: Yes Status: Chronic Code(s): E66.811 - OBESITY, CLASS 1 (9) Type II diabetes mellitus Current Visit: Yes Status: Chronic - Discharge Discharge Date: 09/10/24 Disposition: Home, Self-Care Condition: Stable Prescriptions: New Nebulizer 1 each UD #1 misc cefuroxime axetiL [Cefuroxime] 500 mg PO BID 10 Days #20 tablet Albuterol/Ipratropium 3ml Neb* [DUONEB 0.5-3 MG/3 ml Neb] 3 ml IH Q4HPRN PRN 30 Days #120 amp PRN Reason: Shortness Of Breath/Wheezing Benzonatate 100 mg PO TIDPRN PRN 7 Days #21 cap PRN Reason: Cough Continue Rosuvastatin Calcium [Crestor] 20 mg PO DAILY Lansoprazole [Prevacid] 30 mg PO DAILY Metformin HCl 500 mg [Glucophage 500 MG] 500 mg PO BID Losartan Potassium 50 mg [Cozaar 50 MG] 50 mg PO BID Glipizide 5 mg [Glucotrol 5 MG] 5 mg PO BID Amlodipine/Atorvastatin [Amlodipine-Atorvast 2.5-10 mg] 1 each PO DAILY Tamsulosin HCl 0.4 mg [Flomax 0.4 MG] 0.4 mg PO DAILY Propranolol HCl [Inderal Xl] 80 mg PO DAILY Cranberry 500 mg PO DAILY Multivitamin 1 each PO DAILY Magnesium 200 mg PO UD Empagliflozin [Jardiance] 1 tab PO DAILY Betamethasone Valerate 1 applic TP DAILY PRN PRN PRN Reason: Allergies Nitroglycerin 0.4 mg SL . Q 5MIN X 3 PRN PRN Reason: chest pain Discontinued Furosemide 20 mg [Lasix 20 mg] 20 mg PO DAILY Additional Instructions: He is to follow up with his PCP this week for recheck of his kidney function. Will continue to to hold Lasix until CMP is redrawn this week. Patient advised to check weight daily- if he notices a weight gain of > 3lb in one day or > 5lbs in one week - he is to reach out to his PCP for further management. Follow up with: NICOLE JONES MD [Primary Care Provider] -
[2024-09-10] MEDS ORDERED: PROPRANOLOL HCL 80 MG PO SCH (10:00)
[2024-09-10] MEDS ORDERED: LANSOPRAZOLE 30 MG PO SCH (10:00)
[2024-09-10] MEDS ORDERED: NON-FORMULARY ITEM (Rosuvastatin Calcium [Crestor] 20 MG Tablet) PO SCH (10:00)
[2024-09-10] MEDS ORDERED: [UNRECOGNIZED DRUG - OTHER] PO SCH (10:00)
[2024-09-10] MEDS ORDERED: AMLODIPINE PO SCH (10:00)
[2024-09-10] MEDS ORDERED: CRANBERRY 500 MG PO SCH (10:00)
[2024-09-10] MEDS ORDERED: NON-FORMULARY ITEM (Multivitamin [Multivitamin] 1 EACH Tablet) PO SCH (10:00)
[2024-09-10] MEDS ORDERED: ATORVASTATIN PO SCH (10:00)
[2024-09-10] MEDS: ZOCOR 20MG PO SCH (10:43)
[2024-09-10] MEDS: THERAGRAN MULTIVITAMIN PO SCH (10:44)
[2024-09-10] MEDS: NORVASC 5 MG PO SCH (10:44)
[2024-09-10] MEDS: ZITHROMAX IV*** 500 MG in Sodium Chloride 0.9% 250 ML 250 ML IV SCH (10:45)
[2024-09-10] MEDS: Protonix 40MG Tablet PO SCH (10:45)
[2024-09-10] MEDS: Flomax 0.4 MG PO SCH (10:45)
[2024-09-10 11:50] VITALS: BP 108/52; PULSE 65; RESP 20; TEMP 98.2; O2SAT 95
[2024-09-10] MEDS: ROCEPHIN 1 GM / 100 ML NaCl 1 GM/100 ML IVPB IV SCH (12:37)
== END 2024-09-10 12:56 | disposition home or self-care (01) ==
LOC: ED 14:42 → MED SURG 17:35
PROVIDERS: ADMIT Internal Medicine; ATTEND Internal Medicine
DX: J18.9 Pneumonia, unspecified organism (principal); J12.1 Respiratory syncytial virus pneumonia; B33.8 Other specified viral diseases; I48.91 Unspecified atrial fibrillation; N40.0 Benign prostatic hyperplasia without lower urinary tract symptoms; I25.10 Atherosclerotic heart disease of native coronary artery without angina pectoris; E11.22 Type 2 diabetes mellitus with diabetic chronic kidney disease; I13.0 Hypertensive heart and chronic kidney disease with heart failure and stage 1 through stage 4 chronic kidney disease, or unspecified chronic kidney disease; N18.9 Chronic kidney disease, unspecified; N17.9 Acute kidney failure, unspecified; E66.811 Obesity, class 1; R19.7 Diarrhea, unspecified; Z79.899 Other long term (current) drug therapy; Z95.0 Presence of cardiac pacemaker
CPT/HCPCS: 0241U; 36415; 71046; 80053; 82947; 83036; 83605; 84145; 84484; 85025; 85027; 87651; 93268; 94640; 94760; 99284; 99285; J0456; J0696; Q3014; A9270-GY; G0378